=== PATIENT | female | born 1955 | race Caucasian/White ===

== ENCOUNTER → 2017-06-05 | Outpatient (CLI) | payer OTHER ==
[~2017-06-05] MED LIST: ATIVAN1 MG PO; ATIVAN2 MG PO; ECOTRIN325 MG PO; HYDROCHLOROTH12.5 M1 PO; HYDROCODONE BIT1 T11 PO; IBUPROFEN800 MG PO; INDOCIN SR75 MG PO; Lovenox40 MG/0.4 SC; MOTRIN 800 MG E4 TAB PO; Micro K10 MEQ PO; PERCOCET 325 MG1 TA4 PO; PERCOCET 325 MG1 TA8 PO; POTASSIUM20 MEQ PO; REQUIP1 MG PO; REQUIP2 MG PO; VICODIN 5/500 505 MG PO; XANAX0.5 MG PO; ZANAFLEX2 M1 PO
[2017-06-05 07:52] LABS: BASO # 0.1 10*3/uL (0.0-0.1); BASO % 1.2 % (0.0-1.0); EOS # 0.5 10*3/uL (0.0-0.4); EOS % 6.5 % (1.0-4.0); HEMATOCRIT 46.2 % (37.0-47.0); HEMOGLOBIN 15.8 g/dl (12.0-16.0); LYMPH # 1.5 10*3/uL (1.3-4.4); LYMPH % 18.4 % (27.0-41.0); MEAN CELL VOLUME 88.3 fl (81.0-99.0); MEAN CORPUSCULAR HGB 30.2 pg (27.0-31.0); MEAN CORPUSCULAR HGB CONC 34.2 g/dl (33.0-37.0); MEAN PLATELET VOLUME 9.8 fl (9.6-12.3); MONO # 0.6 10*3/uL (0.1-1.0); MONO % 7.5 % (3.0-9.0); NEUT # 5.5 10*3/uL (2.3-7.9); NEUT % 66.2 % (47.0-73.0); PLATELET COUNT AUTOMATED 346 10*3/uL (130-400); RED BLOOD COUNT 5.23 10*6/uL (4.10-5.10); RED CELL DISTRI WIDTH 14.6 % (0-14.5); WHITE BLOOD COUNT 8.4 10*3/uL (4.8-10.8)
[2017-06-05 08:16] LABS: ALBUMIN 3.7 gm/dl (3.1-4.5); ALKALINE PHOSPHATASE 94 U/L (45-117); BUN 12 mg/dl (7-24); CHLORIDE 103 mmol/L (98-107); CHOLESTEROL 188 mg/dL (<200); CREATININE 0.63 mg/dL (0.55-1.02); FREE T4 1.59 ng/dl (0.76-1.46); HDL CHOLESTEROL 46 mg/dl (40-60); LDL CHOLESTEROL 124 mg/dL (9-159); SGOT/AST 4 IU/L (3-35); SGPT/ALT 14 U/L (12-78); SODIUM 137 mmol/L (136-145); TRIGLYCERIDES 90 mg/dl (<150); VLDL CHOLESTEROL 18 mg/dL (6-40)
[2017-06-05 08:40] LABS: VITAMIN D, 25-HYDROXY 21.8 ng/mL (30-100)
== END | disposition home or self-care (01) ==
LOC: LAB 07:13
PROVIDERS: Internal Medicine
DX: Z13.1 Encounter for screening for diabetes mellitus (principal); Z13.21 Encounter for screening for nutritional disorder; Z13.220 Encounter for screening for lipoid disorders; Z00.00 Encounter for general adult medical examination without abnormal findings

== ENCOUNTER → 2017-06-06 | Outpatient (CLI) | payer OTHER | END | disposition home or self-care (01) | LOC: MAMMO 03:10 | DX: Z12.31 Encounter for screening mammogram for malignant neoplasm of breast (principal) ==

== ENCOUNTER → 2017-07-02 | Outpatient (CLI) | payer OTHER | END | disposition home or self-care (01) | LOC: LAB 09:15 → US 15:00 | DX: R91.1 Solitary pulmonary nodule (principal); E03.9 Hypothyroidism, unspecified; R59.0 Localized enlarged lymph nodes ==

== ENCOUNTER → 2017-07-18 | Outpatient (CLI) | payer OTHER | END | disposition home or self-care (01) | LOC: NM 01:25 | DX: E04.9 Nontoxic goiter, unspecified (principal) ==

== ENCOUNTER → 2017-07-23 | Outpatient (CLI) | payer OTHER ==
[2017-07-23 10:08] LABS: FREE T4 1.64 ng/dl (0.76-1.46)
[2017-07-23 10:13] LABS: THYROID STIM HORMONE (HS) 1.32 uIU/ml (0.358-4.75)
== END | disposition home or self-care (01) ==
LOC: LAB 08:51
PROVIDERS: Internal Medicine
DX: I10 Essential (primary) hypertension (principal); G89.4 Chronic pain syndrome; E04.9 Nontoxic goiter, unspecified; J18.9 Pneumonia, unspecified organism; J00 Acute nasopharyngitis [common cold]; F17.210 Nicotine dependence, cigarettes, uncomplicated; F41.1 Generalized anxiety disorder; J44.1 Chronic obstructive pulmonary disease with (acute) exacerbation; M15.0 Primary generalized (osteo)arthritis

== ENCOUNTER → 2017-09-11 | Outpatient (CLI) | payer OTHER ==
[2017-09-11 09:11] LABS: FREE T4 1.56 ng/dl (0.76-1.46)
[2017-09-11 09:16] LABS: THYROID STIM HORMONE (HS) 1.87 uIU/ml (0.358-4.75)
[2017-09-13 08:10] LABS: THYROTROPIN RECEPTOR AB 0.59 IU/L (0.00-1.75)
== END | disposition home or self-care (01) ==
LOC: LAB 08:19
PROVIDERS: Internal Medicine Endocrinology, Diabetes & Metabolism
DX: E04.2 Nontoxic multinodular goiter (principal); R94.6 Abnormal results of thyroid function studies

== ENCOUNTER → 2017-11-21 | Outpatient (CLI) | payer OTHER ==
[2017-11-21 10:31] LABS: CREATININE 0.67 mg/dL (0.55-1.02)
[2017-11-21 10:36] LABS: FREE T4 1.43 ng/dl (0.76-1.46)
== END | disposition home or self-care (01) ==
LOC: LAB 10:06 → CT 15:00
PROVIDERS: Internal Medicine Endocrinology, Diabetes & Metabolism
DX: R94.6 Abnormal results of thyroid function studies (principal); E23.7 Disorder of pituitary gland, unspecified; R04.2 Hemoptysis; E04.2 Nontoxic multinodular goiter

== ENCOUNTER → 2018-01-24 | Outpatient (CLI) | payer OTHER | END | disposition home or self-care (01) | LOC: RAD 08:00 | DX: M19.031 Primary osteoarthritis, right wrist (principal); Z87.891 Personal history of nicotine dependence ==

== ENCOUNTER → 2018-09-24 | Outpatient (CLI) | payer OTHER ==
[~2018-09-24] MED LIST changes: +IBU-200200 MG PO; +METOPROLOL SUCC25 M2 PO; -Micro K10 MEQ PO; +NEURONTIN300 MG PO; +POTASSIUM CHLO10 ME4 PO; +PROTONIX TR40 M1 PO; +TYLENOL EXTRA500 M2 PO
[2018-09-24 07:55] LABS: BASO # 0.1 10*3/uL (0.0-0.1); EOS # 0.4 10*3/uL (0.0-0.4); EOS % 3.9 % (1.0-4.0); HEMATOCRIT 45.2 % (37.0-47.0); HEMOGLOBIN 14.3 g/dl (12.0-16.0); LYMPH % 10.8 % (27.0-41.0); MEAN CELL VOLUME 85.3 fl (81.0-99.0); MEAN CORPUSCULAR HGB CONC 31.6 g/dl (33.0-37.0); MONO # 0.4 10*3/uL (0.1-1.0); MONO % 4.9 % (3.0-9.0); PLATELET COUNT AUTOMATED 372 10*3/uL (130-400); RED CELL DISTRI WIDTH 15.9 % (0-14.5); WHITE BLOOD COUNT 8.9 10*3/uL (4.8-10.8)
[2018-09-24 08:23] LABS: ALBUMIN 3.4 gm/dl (3.1-4.5); ALKALINE PHOSPHATASE 94 U/L (45-117); BUN 16 mg/dl (7-24); CHLORIDE 104 mmol/L (98-107); CHOLESTEROL 182 mg/dL (<200); CREATININE 0.81 mg/dL (0.55-1.02); FREE T4 1.42 ng/dl (0.76-1.46); HDL CHOLESTEROL 47 mg/dl (40-60); LDL CHOLESTEROL 115 mg/dL (9-159); POTASSIUM 3.2 mmol/L (3.5-5.1); SGOT/AST 8 IU/L (3-35); SGPT/ALT 11 U/L (12-78); SODIUM 140 mmol/L (136-145); TOTAL PROTEIN 8.1 gm/dL (6.4-8.2); TRIGLYCERIDES 99 mg/dl (<150); VLDL CHOLESTEROL 20 mg/dL (6-40)
[2018-09-24 08:33] LABS: VITAMIN D, 25-HYDROXY 22.6 ng/mL (30-100)
== END | disposition home or self-care (01) ==
LOC: MAMMO 09-17 14:30 → LAB 02:13 → MAMMO 14:30
PROVIDERS: Internal Medicine
DX: Z12.31 Encounter for screening mammogram for malignant neoplasm of breast (principal); Z13.1 Encounter for screening for diabetes mellitus; Z13.220 Encounter for screening for lipoid disorders; Z13.21 Encounter for screening for nutritional disorder; E55.9 Vitamin D deficiency, unspecified; R53.81 Other malaise

== ENCOUNTER 2019-01-23 07:06 | Inpatient (IN) | payer OTHER ==
[2019-01-23] VITALS (16 sets, daily range): BP systolic 113–155; BP diastolic 65–87
[~2019-01-23] VITALS: Ht 165.1 cm; Wt 49.9 kg
--- NOTE | ~2019-01-23 | EKG ---
[place], [place] ELECTROCARDIOGRAM REPORT NAME: MICHAEL SANTIAGO UNIT #: [id number] ROOM: [facility] DOCTOR: ORION DRAFT REPORT BIRTHDATE: [birth year] [facility] Test Date: 2019-01-23 Test Time: 07:27:26 Pat Name: MICHAEL SANTIAGO Department: Room: [facility] Gender: F Energy Efficiency Specialist: : 1955 Requested By: TYSHAWN JAMESON Order Number: [id number] Reading MD: Phylicia Santos Measurements Intervals [place] Rate: 100 P: 78 WI: 153 QRS: -25 QRSD: 98 T: 110 QT: 334 QTc: 431 Interpretive Statements Sinus tachycardia Borderline left axis deviation Low voltage, precordial leads Repol abnrm suggests ischemia, anterolateral Electronically Signed On 01-24-2019 8:31:29 PDT by Phylicia Santos CM:EKGRPT:ELECTROCARDIOGRAM REPORT [id number] TYSHAWN SEARS DRAFT REPORT TYSHAWN JAMESON M.D.
--- NOTE | ~2019-01-23 | PR ---
[place], [place] PROGRESS NOTE NAME: MICHAEL SANTIAGO UNIT #: [id number] ROOM: [facility] DOCTOR: SHAYY MELGAR MD BIRTHDATE: [birth year] DOS: 01/24/2019 SUBJECTIVE: The patient is feeling much better, has not vomited any blood since being admitted to the hospital. The patient is scheduled for an EGD evaluation for her upper GI bleed by Dr. Langley today. OBJECTIVE: VITAL SIGNS: Blood pressure 140/67, heart rate 90 beats per minute, breathing 16 times per minute, temperature 98.3 degrees Fahrenheit. GENERAL APPEARANCE: The patient is alert and oriented x 3, in no visible distress. HEENT AND NECK: Exam within normal limits. CARDIOVASCULAR SYSTEM: Heart rate is regular in rate and rhythm. S1 and S2 normally audible. LUNGS: Clear to auscultation. ABDOMEN: Soft, nontender. No obvious organomegaly. Bowel sounds are present. EXTREMITIES: Without significant cyanosis or edema. IMPRESSION: 1. The patient with severe acute upper gastrointestinal bleed, apparently secondary to taking ibuprofen 1000 mg 3 times a day. The patient's ibuprofen has been stopped and she is on IV Protonix infusion along with Sandostatin infusion and being followed by Dr. Langley and Dr. Edgar and is being taken for an EGD evaluation by Dr. Langley today. The patient's hemoglobin is being monitored and has improved after blood transfusion. No more signs of bleeding today. The patient is being closely monitored in the ICU. 2. Benign essential hypertension, treated and controlled. Blood pressure is being monitored. 3. Lumbar spinal stenosis, treated with gabapentin, which is being continued. 4. Osteoarthritis involving multiple joints with chronic pains being controlled with gabapentin. 5. Hypokalemia with potassium level of 2.9, which is being replaced with intravenous potassium 60 mEq today. [place], [place] PROGRESS NOTE NAME: MICHAEL SANTIAGO UNIT #: [id number] ROOM: [facility] DOCTOR: SHAYY MELGAR MD BIRTHDATE: [birth year] SHAYY MELGAR MD CM:PNTRANS [id number] SHAYY MELGAR MD 01/25/19 0041 interface
--- NOTE | ~2019-01-23 | PR ---
[place], [place] PROGRESS NOTE NAME: MICHAEL SANTIAGO UNIT #: [id number] ROOM: [facility] DOCTOR: CARYN ASHLEY MD BIRTHDATE: [birth year] DOS: SUBJECTIVE: The patient states that she is tired, does not have any new complaints. OBJECTIVE: VITAL SIGNS: Graphic trend shows a pressure 124/82, pulse of 93, respirations 18, temperature 98.6. LUNGS: Diminished breath sounds. Clear. HEART: Regular. ABDOMEN: Soft. EXTREMITIES: Without any edema. LABORATORY DATA: White cell count is 6.9, hemoglobin 6.7, hematocrit 21.0, platelets 265. BMP: Glucose 93, BUN 24, creatinine 0.78. Sodium 144, potassium 3.6, chloride 116, bicarbonate 17, calcium 7.1. MRSA of the nares was positive. ASSESSMENT AND PLAN: 1. The patient who presented with hematemesis with an acute penetrating gastric ulcer. Discussed with Dr. Langley. He feels that the patient would benefit from surgical evaluation and wants to send out the patient to Dr. Samuels's care, Dr. Langley to make the determination this morning. 2. Anemia with precipitous drop in hematocrit from gastrointestinal bleed. Two units of blood transfusion will be ordered this morning. Also, check an iron level and a ferritin level and will be started on IV iron infusion if needed. 3. Benign hypertension. Pressures now controlled. We will hold off on hydrochlorothiazide. 4. Chronic back pain, which she takes Motrin, quite higher doses of Motrin, and she is given Dilaudid for pain right now. CARYN ASHLEY MD CM:PNTRANS [id number] CARYN ASHLEY MD 01/25/19 1057 interface
--- NOTE | ~2019-01-23 | WRIGHTHP ---
[place], [place] PATIENT HISTORY AND PHYSICAL EXAM NAME: [facility]O [id number] UNIT #: [id number] ROOM: [facility] DOCTOR: SHAYY MELGAR MD BIRTHDATE: [birth year] DOS: 01/23/2019 HISTORY OF PRESENT ILLNESS: The patient is a 64-year-old female with a past medical history of: 1. Benign essential hypertension. 2. Generalized anxiety disorder. 3. Nicotine smoke dependence. 4. History of lumbar spinal stenosis and generalized arthritis. 5. History of right hip replacement. The patient presented to the Emergency Department with vomiting blood and blood clots and she had noticed black colored stools a couple of days earlier. The patient got somewhat dizzy this morning, which was followed by vomiting. No fainting episodes. No chest pain, no shortness of breath. REVIEW OF SYSTEMS: RESPIRATORY: No increasing shortness of breath. GASTROINTESTINAL: The patient noticing fresh blood in her vomitus this morning and black stools earlier. CARDIOVASCULAR: No chest pains or palpitations. ALLERGIES: Known allergies to SULFUR. FAMILY HISTORY: Noncontributory. SOCIAL HISTORY: Smokes cigarettes. Denies any alcohol or drug abuse. HOME MEDICATIONS: The patient takes gabapentin. Medications were tizanidine, ropinirole, potassium, ibuprofen, hydrochlorothiazide, and gabapentin. PHYSICAL EXAMINATION: GENERAL: Alert and oriented. VITAL SIGNS: Blood pressure 154/87, heart rate of 95 beats per minute, breathing 17 times a minute, temperature 99 degrees Fahrenheit. HEENT AND NECK: Extraocular movements are intact. Sclerae are anicteric. Oral mucosa is moist and clean. No obvious facial weakness. Neck is supple without any lymphadenopathy. No thyromegaly. No JVD. No carotid arterial bruits. LUNGS: Clear to auscultation. No wheezing. No rhonchi. CARDIOVASCULAR SYSTEM: Heart rate is regular in rate and rhythm. S1 and S2 normally audible. No significant murmur or any other abnormal cardiac sounds. ABDOMEN: Soft, nontender. No obvious organomegaly. Bowel sounds are present. No obvious herniation. EXTREMITIES: Without significant cyanosis or edema. Warm to touch. CENTRAL NERVOUS SYSTEM: Alert and oriented x 3. Cranial nerves II-XII are intact. Speech is normal. The patient is able to move all extremities. Normal muscle strength. Deep tendon reflexes are equal on both sides. Plantars were downgoing. LABORATORY DATA: Hemoglobin of 8.8 and will be repeated at noon. Potassium level of 2.6. [place], [place] PATIENT HISTORY AND PHYSICAL EXAM NAME: MICHAEL SANTIAGO UNIT #: [id number] ROOM: [facility] DOCTOR: TALIA SINCLAIR,SHAYY Rodriguez BIRTHDATE: [birth year] IMPRESSION AND PLAN: 1. Acute upper gastrointestinal bleed. Dr. Langley and Dr. Edgar consulted on stat basis. The patient is getting Sandostatin infusion as well as IV Protonix infusion and hemoglobin to be repeated in 2 hours. The patient has been ordered 2 units of packed cells on stat basis and being watched very closely in the ICU. The patient has no significant complaints at this time. 2. Benign essential hypertension. Blood pressure will be monitored and treated. 3. Lumbar spinal stenosis. The patient is on gabapentin, which is being continued. 4. Acute upper gastrointestinal bleed, probably from consuming ibuprofen 1000 mg [id number] 3 times a day for several months now according to the patient for arthritic pains. 5. Osteoarthritis involving multiple joints with chronic pains. The patient was taking ibuprofen at home and is as described above. SHAYY MELGAR MD CM:HISPHYS:PATIENT HISTORY AND PHYSICAL EXAMINATION [id number] SHAYY MELGAR MD 01/23/19 1047 interface
--- NOTE | ~2019-01-23 | CON ---
[place], [place] REPORT OF CONSULTATION NAME: MICHAEL SANTIAGO UNIT #: [id number] ROOM: [facility] DOCTOR: RENEE TREJO MD BIRTHDATE: [birth year] DOS: 01/24/2019 GASTROENDOSCOPIC REPORT HISTORY OF PRESENT ILLNESS: A 64-year-old patient who presented with chief complaint of GI bleed, black tarry stool with H and H of 8.8 and 27, microcytic indices, a couple of days of dark stool. INR 1.1 and basic studies no radiologic pathology in the chest. GFR greater than 60. Potassium 2.6 that had to be corrected. CBC essentially stayed same area. She has been taking about 3 g of nonsteroidal anti-inflammatory daily. We had to transfuse her to ensure she keeps adequate H and H and stabilized at 10 and 30; platelet function test was done. PAST MEDICAL HISTORY: She has a picture of blood clot that she had vomited. She has had degenerative joint disease, has a history of hypertension. PAST SURGICAL HISTORY: Hysterectomy and three hip injections. SOCIAL HISTORY: Alcohol consumer, nonsmoker. FAMILY HISTORY: Noncontributory. MEDICATIONS: At home, oxycodone, Lovenox, Indocin at least 75 mg daily, Ecotrin 325 mg p.o. b.i.d. and nonsteroidal anti-inflammatories in addition. REVIEW OF SYSTEMS: HEENT: Denies double vision, blurred vision. RESPIRATORY: Denies shortness of breath. CARDIOVASCULAR: Denies chest pain. DIGESTIVE SYSTEM: Hematemesis, black tarry stool. PHYSICAL EXAMINATION: VITAL SIGNS: Stable. HEENT: Within normal limits. NECK: Supple, no thyromegaly, no cervical lymphadenopathy. CHEST: Symmetric anatomy, equal expansion. No wheeze, no rhonchi. HEART: Normal sinus rhythm, no gallop, no murmur. ABDOMEN: Soft. No hepato-organomegaly. Bowel sounds present. No pulsatile mass. EXTREMITIES: No cyanosis, no pedal edema. NEUROLOGIC: Alert, oriented to time, place and person. IMPRESSION: Gastrointestinal bleed secondary to nonsteroidal anti-inflammatory, anticoagulants, aspirin products. PLAN AND DISCUSSION: We are going to proceed investigation with EGD, if negative, colonoscopy. [place], [place] REPORT OF CONSULTATION NAME: MICHAEL SANTIAGO UNIT #: [id number] ROOM: [facility] DOCTOR: NEIL SINCLAIR,RENEE BIRTHDATE: [birth year] RENEE TREJO MD CM:CONSTR:REPORT OF CONSULTATION 54 02/12/19 0909 interface
--- NOTE | ~2019-01-23 | DS ---
[place], [place] DISCHARGE SUMMARY NAME: MICHAEL SANTIAGO UNIT #: [id number] ROOM: [facility] DOCTOR: CARYN ASHLEY MD BIRTHDATE: [birth year] DOS: 01/25/2019 DIAGNOSES: 1. Acute upper gastrointestinal bleed. 2. Penetrating ulcer of the lesser curvature. 3. Precipitous drop in hematocrit. 4. Chronic low back pain with usage of high amounts of nonsteroidals. 5. Methicillin-resistant Staphylococcus aureus of the nares. 6. Restless legs. 7. Spinal stenosis of the lumbar spine with radiculopathy. 8. History of right hip replacement. 9. Benign hypertension. 10. Generalized anxiety disorder. MEDICATIONS: Currently on discharge, she is on Protonix and statin. Her old medications are Zanaflex 1 mg p.m., Requip 2 mg b.i.d., potassium 10 daily, gabapentin 300 mg daily, hydrochlorothiazide 12.5 mg daily which is stopped. She also was taking ibuprofen 200 mg 3 times a day. She was taking up to 1000 mg daily. HOSPITAL COURSE: This patient is 64 years old, very well known to us, who comes in after spitting up large amounts of blood. She was sent to the Emergency Room, was evaluated and was found to have upper GI bleed, was admitted, was placed on IV fluids. Dr. Langley was consulted. Hemoglobin was 8.8 in the ER, was given transfusion and the hemoglobin did come up. Hypokalemia was noted, supplementation was given. Dr. Langley took the patient for endoscopy. A large gastric ulcer with a large clot, penetrating in the lesser curvature was noted. Dr. Langley feels that the patient would benefit from a surgical evaluation. The patient is most likely going to [place] this morning under Dr. Samuels's care and waiting for Dr. Langley to make the final call. Her hemoglobin did drop again to 6.7. Another 2 units of blood transfusion have been ordered. She is kept n.p.o. The pain is managed with IV Dilaudid. The patient is hemodynamically stable. Blood pressures have been within normal limits and hypertensives are on hold. Hypokalemia has corrected with supplementation. [place], [place] DISCHARGE SUMMARY NAME: MICHAEL SANTIAGO UNIT #: [id number] ROOM: [facility] DOCTOR: CARYN ASHLEY MD BIRTHDATE: [birth year] CARYN ASHLEY MD CM:DISCHARG 0722 1014 CARYN ASHLEY MD 01/25/19 1014 interface
--- NOTE | ~2019-01-23 | O ---
[place], [place] OPERATIVE NOTE NAME: MICHAEL SANTIAGO UNIT #: [id number] ROOM: [facility] DOCTOR: NEIL SINCLAIR,RENEE BIRTHDATE: [birth year] DOS: 01/24/2019 ENDOSCOPY REPORT The patient has presented with GI bleed, undergoing investigation. PROCEDURE: Today's procedure part of investigation is panendoscopy plus epinephrine hemostasis injection therapy. PREMEDICATION: Propofol. SCOPE: Olympus forward-viewing gastroscope Q10 video. REPORT: After putting the patient in the left lateral position and application of lubricant to the scope, the scope was introduced. Thereafter, under direct visualization, advanced through the length of esophagus into gastric pouch. Moderate size hiatal hernia seen at the point of impression and contraction of the gastric pouch. On the side of the lesser curvature, a giant penetrating ulcer with massive fresh clot on the surface was identified. Periphery of the ulcer was injected with 2 mL of epinephrine 1:10,000 both flanks and to secure control of the bleed. The patient has a large volume of blood in the stomach, extubated, tolerated the procedure well. IMPRESSION: Giant penetrating lesser curvature ulceration, large hiatal hernia. PLAN AND DISCUSSION: This patient requires immediate surgical management. As soon as she wakes up, we will discuss options. RENEE TREJO MD CM:OPRECORD:OPERATIVE NOTE 1955 0622 RENEE TREJO MD 02/12/19 0910 interface
[~2019-01-23 07:06] MED LIST changes: -IBU-200200 MG PO; -METOPROLOL SUCC25 M2 PO; -NEURONTIN300 MG PO; -PROTONIX TR40 M1 PO; -TYLENOL EXTRA500 M2 PO
[2019-01-23 07:37] LABS: BASO # 0.1 10*3/uL (0.0-0.1); BASO % 0.8 % (0.0-1.0); EOS # 0.1 10*3/uL (0.0-0.4); EOS % 0.6 % (1.0-4.0); HEMATOCRIT 27.7 % (37.0-47.0); HEMOGLOBIN 8.8 g/dl (12.0-16.0); LYMPH # 1.3 10*3/uL (1.3-4.4); LYMPH % 14.7 % (27.0-41.0); MEAN CELL VOLUME 78.9 fl (81.0-99.0); MEAN CORPUSCULAR HGB 25.1 pg (27.0-31.0); MEAN CORPUSCULAR HGB CONC 31.8 g/dl (33.0-37.0); MEAN PLATELET VOLUME 9.6 fl (9.6-12.3); MONO # 0.6 10*3/uL (0.1-1.0); MONO % 6.4 % (3.0-9.0); NEUT % 77.1 % (47.0-73.0); PLATELET COUNT AUTOMATED 489 10*3/uL (130-400); RED BLOOD COUNT 3.51 10*6/uL (4.10-5.10); RED CELL DISTRI WIDTH 16.4 % (0-14.5)
[2019-01-23 07:45] LABS: ACT PARTIAL THROMBO TIME 21.9 SECONDS (20.0-32.1)
[2019-01-23 07:55] LABS: ALBUMIN 3.2 gm/dl (3.1-4.5); ALKALINE PHOSPHATASE 81 U/L (45-117); BUN 33 mg/dl (7-24); CHLORIDE 101 mmol/L (98-107); CREATININE 0.86 mg/dL (0.55-1.02); POTASSIUM 2.6 mmol/L (3.5-5.1); SGOT/AST 11 IU/L (3-35); SGPT/ALT 9 U/L (12-78); SODIUM 135 mmol/L (136-145); TOTAL PROTEIN 7.5 gm/dL (6.4-8.2)
[2019-01-23] MEDS ORDERED: IBU-200200 MG PO (09:23)
[2019-01-23] MEDS ORDERED: NEURONTIN300 MG PO (10:07)
[2019-01-23 10:45] LABS: BASO # 0.1 10*3/uL (0.0-0.1); BASO % 0.9 % (0.0-1.0); EOS # 0.1 10*3/uL (0.0-0.4); EOS % 0.8 % (1.0-4.0); HEMATOCRIT 26.3 % (37.0-47.0); HEMOGLOBIN 8.3 g/dl (12.0-16.0); LYMPH # 1.5 10*3/uL (1.3-4.4); LYMPH % 16.4 % (27.0-41.0); MEAN CELL VOLUME 79.2 fl (81.0-99.0); MEAN CORPUSCULAR HGB CONC 31.6 g/dl (33.0-37.0); MEAN PLATELET VOLUME 9.7 fl (9.6-12.3); MONO # 0.7 10*3/uL (0.1-1.0); NEUT # 6.8 10*3/uL (2.3-7.9); NEUT % 73.6 % (47.0-73.0); PLATELET COUNT AUTOMATED 453 10*3/uL (130-400); RED BLOOD COUNT 3.32 10*6/uL (4.10-5.10); RED CELL DISTRI WIDTH 16.3 % (0-14.5); WHITE BLOOD COUNT 9.2 10*3/uL (4.8-10.8)
[2019-01-23 16:06] LABS: HEMATOCRIT 31.2 % (37.0-47.0); HEMOGLOBIN 10.3 g/dl (12.0-16.0)
[2019-01-23 22:09] LABS: HEMATOCRIT 26.1 % (37.0-47.0); HEMOGLOBIN 8.6 g/dl (12.0-16.0)
[2019-01-24] VITALS (10 sets, daily range): BP systolic 109–160; BP diastolic 58–91
[2019-01-24 05:45] LABS: CHLORIDE 108 mmol/L (98-107); CREATININE 0.66 mg/dL (0.55-1.02); POTASSIUM 2.9 mmol/L (3.5-5.1); SODIUM 138 mmol/L (136-145)
[2019-01-24 06:16] LABS: BASO # 0.1 10*3/uL (0.0-0.1); BASO % 0.9 % (0.0-1.0); EOS # 0.2 10*3/uL (0.0-0.4); EOS % 3.5 % (1.0-4.0); HEMATOCRIT 30.9 % (37.0-47.0); LYMPH # 1.5 10*3/uL (1.3-4.4); LYMPH % 25.3 % (27.0-41.0); MEAN CELL VOLUME 80.5 fl (81.0-99.0); MEAN CORPUSCULAR HGB CONC 32.4 g/dl (33.0-37.0); MEAN PLATELET VOLUME 10.2 fl (9.6-12.3); MONO # 0.5 10*3/uL (0.1-1.0); MONO % 9.4 % (3.0-9.0); NEUT # 3.5 10*3/uL (2.3-7.9); NEUT % 60.4 % (47.0-73.0); PLATELET COUNT AUTOMATED 322 10*3/uL (130-400); RED BLOOD COUNT 3.84 10*6/uL (4.10-5.10); RED CELL DISTRI WIDTH 15.9 % (0-14.5); WHITE BLOOD COUNT 5.8 10*3/uL (4.8-10.8)
[2019-01-24 06:29] LABS: BUN 16 mg/dl (7-24)
[2019-01-25] VITALS (11 sets, daily range): BP systolic 113–140; BP diastolic 32–82
[2019-01-25 06:12] LABS: BASO % 0.3 % (0.0-1.0); EOS # 0.1 10*3/uL (0.0-0.4); EOS % 1.6 % (1.0-4.0); MEAN CORPUSCULAR HGB 26.7 pg (27.0-31.0); MEAN CORPUSCULAR HGB CONC 31.9 g/dl (33.0-37.0); MEAN PLATELET VOLUME 9.9 fl (9.6-12.3); MONO # 0.6 10*3/uL (0.1-1.0); MONO % 8.1 % (3.0-9.0); NEUT # 5.2 10*3/uL (2.3-7.9); NEUT % 74.7 % (47.0-73.0); PLATELET COUNT AUTOMATED 265 10*3/uL (130-400); RED BLOOD COUNT 2.51 10*6/uL (4.10-5.10); RED CELL DISTRI WIDTH 16.3 % (0-14.5); WHITE BLOOD COUNT 6.9 10*3/uL (4.8-10.8)
[2019-01-25 06:21] LABS: BUN 24 mg/dl (7-24); CHLORIDE 116 mmol/L (98-107); CREATININE 0.48 mg/dL (0.55-1.02); POTASSIUM 3.6 mmol/L (3.5-5.1); SODIUM 144 mmol/L (136-145)
[2019-01-25 06:59] LABS: HEMOGLOBIN 6.7 g/dl (12.0-16.0); MEAN CELL VOLUME 83.7 fl (81.0-99.0)
[2019-03-20] MEDS ORDERED: PROTONIX TR40 M1 PO (16:27)
[2019-03-20] MEDS ORDERED: TYLENOL EXTRA500 M2 PO (16:28)
[2019-03-20] MEDS ORDERED: METOPROLOL SUCC25 M2 PO (16:28)
== END 2019-01-25 14:50 | disposition short-term general hospital (02) | DRG 378 ==
LOC: ED 07:06 → ICCU 08:41 → EDHOLD 08:41 → ICCU 08:41
PROVIDERS: Emergency Medicine; Internal Medicine Gastroenterology; ADMIT Internal Medicine
PROC: 30233R1 Transfusion of Nonautologous Platelets into Peripheral Vein, Percutaneous Approach (ICD-10-PCS; principal; 2019-01-23)
PROC: 3E0G8GC Introduction of Other Therapeutic Substance into Upper GI, Via Natural or Artificial Opening Endoscopic (ICD-10-PCS; 2019-01-24)
PROC: 30233N1 Transfusion of Nonautologous Red Blood Cells into Peripheral Vein, Percutaneous Approach (ICD-10-PCS; 2019-01-25)
DX: K92.2 Gastrointestinal hemorrhage, unspecified (principal); Z68.1 Body mass index [BMI] 19.9 or less, adult; R71.0 Precipitous drop in hematocrit; I10 Essential (primary) hypertension; F41.1 Generalized anxiety disorder; K25.3 Acute gastric ulcer without hemorrhage or perforation; E87.6 Hypokalemia; G89.29 Other chronic pain; F17.210 Nicotine dependence, cigarettes, uncomplicated; T39.315A Adverse effect of propionic acid derivatives, initial encounter; G25.81 Restless legs syndrome; K44.9 Diaphragmatic hernia without obstruction or gangrene; M54.9 Dorsalgia, unspecified; M19.90 Unspecified osteoarthritis, unspecified site; Z96.641 Presence of right artificial hip joint; M48.061 Spinal stenosis, lumbar region without neurogenic claudication; Z88.2 Allergy status to sulfonamides; Z79.82 Long term (current) use of aspirin; Z79.899 Other long term (current) drug therapy; Z90.710 Acquired absence of both cervix and uterus; Z82.49 Family history of ischemic heart disease and other diseases of the circulatory system; Z80.9 Family history of malignant neoplasm, unspecified; Y92.89 Other specified places as the place of occurrence of the external cause

== ENCOUNTER → 2019-02-04 | Outpatient (CLI) | payer OTHER ==
[~2019-02-04] MED LIST changes: +CEFUROXIME AXE250 MG PO; +IBU-200200 MG PO; +Lopressor25 MG PO; +METOPROLOL SUCC25 M2 PO; +NEURONTIN300 MG PO; +PROTONIX TR40 M1 PO; +SYMB80 INH; +TYLENOL EXTRA500 M2 PO
[2019-02-04 13:31] LABS: BASO # 0.1 10*3/uL (0.0-0.1); BASO % 1.1 % (0.0-1.0); EOS # 0.3 10*3/uL (0.0-0.4); HEMATOCRIT 34.6 % (37.0-47.0); HEMOGLOBIN 10.7 g/dl (12.0-16.0); LYMPH # 1.9 10*3/uL (1.3-4.4); LYMPH % 17.3 % (27.0-41.0); MEAN CELL VOLUME 88.5 fl (81.0-99.0); MEAN CORPUSCULAR HGB 27.4 pg (27.0-31.0); MEAN CORPUSCULAR HGB CONC 30.9 g/dl (33.0-37.0); MEAN PLATELET VOLUME 10.7 fl (9.6-12.3); MONO # 1.2 10*3/uL (0.1-1.0); MONO % 10.8 % (3.0-9.0); NEUT # 7.3 10*3/uL (2.3-7.9); NEUT % 67.3 % (47.0-73.0); PLATELET COUNT AUTOMATED 642 10*3/uL (130-400); RED BLOOD COUNT 3.91 10*6/uL (4.10-5.10); RED CELL DISTRI WIDTH 17.2 % (0-14.5); WHITE BLOOD COUNT 10.8 10*3/uL (4.8-10.8)
== END | disposition home or self-care (01) ==
LOC: LAB 12:25
PROVIDERS: Internal Medicine
DX: D64.9 Anemia, unspecified (principal)

== ENCOUNTER → 2019-03-04 | Outpatient (CLI) | payer OTHER ==
[~2019-03-04] MED LIST changes: -CEFUROXIME AXE250 MG PO; -Lopressor25 MG PO; -SYMB80 INH
== END | disposition home or self-care (01) ==
LOC: RAD 08:55
DX: M51.36 Other intervertebral disc degeneration, lumbar region (principal); M85.88 Other specified disorders of bone density and structure, other site

== ENCOUNTER 2019-03-25 05:48 | Inpatient (IN) | payer OTHER ==
[~2019-03-25] VITALS: Ht 165.1 cm; Wt 59.6 kg
--- NOTE | ~2019-03-25 | EKG ---
[place], [place] ELECTROCARDIOGRAM REPORT NAME: MICHAEL SANTIAGO UNIT #: [id number] ROOM: 520 DOCTOR: ORION DRAFT REPORT BIRTHDATE: [birth year] [facility] Test Date: 2019-03-25 Test Time: 08:57:27 Pat Name: MICHAEL SANTIAGO Department: Room: 520 Gender: F Healthcare Project Manager: : 1955 Requested By: RENARD LOCKE Order Number: [id number] Reading MD: Douglas Cleaning MD Measurements Intervals [place] Rate: 72 P: 82 [place]: 157 QRS: -30 QRSD: 94 T: -27 QT: 430 QTc: 471 Interpretive Statements Sinus rhythm Inferior infarct, old Compared to ECG 01/23/2019 07:27:26 Myocardial infarct finding now present Sinus tachycardia no longer present Early repolarization no longer present Possible ischemia no longer present Electronically Signed On 03-27-2019 5:05:31 PDT by Douglas Cleaning MD CM:EKGRPT:ELECTROCARDIOGRAM REPORT [id number] RENARD CH DRAFT REPORT RENARD LOCKE DO
--- NOTE | ~2019-03-25 | EKG ---
[place], [place] ELECTROCARDIOGRAM REPORT NAME: MICHAEL SANTIAGO UNIT #: [id number] ROOM: 520 DOCTOR: ORION DRAFT REPORT BIRTHDATE: [birth year] [facility] Test Date: 2019-03-25 Test Time: 11:44:32 Pat Name: MICHAEL SANTIAGO Department: Room: 520 Gender: F Dean: 18 : 1955 Requested By: RENARD LOCKE Order Number: [id number] Reading MD: Douglas Cleaning MD Measurements Intervals [place] Rate: 69 P: 72 [place]: 153 QRS: -32 QRSD: 100 T: -26 QT: 387 QTc: 415 Interpretive Statements Sinus rhythm Ventricular premature complex LVH with secondary repolarization abnormality Compared to ECG 01/23/2019 07:27:26 Ventricular premature complex(es) now present Left ventricular hypertrophy now present Sinus tachycardia no longer present Possible ischemia no longer present Electronically Signed On 03-27-2019 5:05:51 PDT by Douglas Cleaning MD CM:EKGRPT:ELECTROCARDIOGRAM REPORT [id number] 0505 RENARD CH DRAFT REPORT RENARD LOCKE DO
--- NOTE | ~2019-03-25 | EKG ---
[place], [place] ELECTROCARDIOGRAM REPORT NAME: MICHAEL SANTIAGO UNIT #: [id number] ROOM: 520 DOCTOR: ORION DRAFT REPORT BIRTHDATE: [birth year] [facility] Test Date: 2019-03-25 Test Time: 05:47:30 Pat Name: MICHAEL SANTIAGO Department: Room: 520 Gender: F Game Agent: : 1955 Requested By: RENARD LOCKE Order Number: [id number] Reading MD: Douglas Cleaning MD Measurements Intervals [place] Rate: 85 P: 60 GA: 152 QRS: -31 QRSD: 100 T: 9 QT: 390 QTc: 464 Interpretive Statements Sinus rhythm Probable left atrial enlargement Left axis deviation Consider anterior infarct Compared to ECG 01/23/2019 07:27:26 Myocardial infarct finding now present Sinus tachycardia no longer present Early repolarization no longer present Possible ischemia no longer present Electronically Signed On 03-27-2019 5:05:10 PDT by Douglas Cleaning MD CM:EKGRPT:ELECTROCARDIOGRAM REPORT [id number] 0505 RENARD CH DRAFT REPORT RENARD LOCKE DO
--- NOTE | ~2019-03-25 | PR ---
[place], [place] PROGRESS NOTE NAME: MICHAEL SANTIAGO UNIT #: [id number] ROOM: 520 DOCTOR: CARYN ASHLEY MD BIRTHDATE: [birth year] DOS: SUBJECTIVE: The patient states that she feels good and is not having any complaints, does not have any shortness of breath, chest pains or palpitations. OBJECTIVE: GENERAL: She is awake and alert and oriented. VITAL SIGNS: Blood pressure is 102/50, pulse of 73, respirations 18, temperature 98.0. LUNGS: Clear. HEART: Regular. ABDOMEN: Obese, soft. EXTREMITIES: Without any edema. Chest x-ray shows atelectasis, hiatal hernia, COPD, mild pleural effusion. LABORATORY DATA: CBC this morning, WBC count is 6.1, hemoglobin 8.7, hematocrit 28.9. BMP: Glucose 115, BUN 13, creatinine 0.70, sodium 133, potassium 3.1. Three sets of troponins have come back negative. ASSESSMENT AND PLAN: 1. Acute systolic congestive heart failure. The patient was told that she only had an ejection fraction of 20%. Prior echo done in January, which she says is not correct as per the patient. I do not have an echocardiogram report from [place] to review the results. I did order one, which was canceled yesterday, so we will write to do another one this morning. The patient is encouraged to stay, but she is adamant that she wants to go home because she has to work tomorrow and has a ticket to fly on Sunday to [place]. 2. Chronic obstructive pulmonary disease with moderate cigarette smoker without any exacerbation, on breathing treatments here. 3. Benign hypertension, controlled. Readjust medications. The plan is to discharge to home today. 4. Recent gastric ulcer. She was supposed to have an endoscopy as an outpatient. We will try to do it today while she is here. [place], [place] PROGRESS NOTE NAME: MICHAEL SANTIAGO UNIT #: [id number] ROOM: 520 DOCTOR: CARYN ASHLEY MD BIRTHDATE: [birth year] CARYN ASHLEY MD CM:PNTRANS 0851 [id number] CARYN ASHLEY MD 03/27/19 0048 interface
--- NOTE | ~2019-03-25 | WRIGHTHP ---
[place], [place] PATIENT HISTORY AND PHYSICAL EXAM NAME: MICHAEL SANTIAGO UNIT #: [id number] ROOM: 520 DOCTOR: CARYN ASHLEY MD BIRTHDATE: [birth year] DOS: 03/25/2019 HISTORY OF PRESENT ILLNESS: This patient is 64 years old. The patient is seen in the Emergency Room. She walked into the hospital for her work. On her way, she became quite dizzy, lightheaded and almost collapsed. She called out for the customer service security officer who came and helped her up. She did not fall on the ground. She did not lose her consciousness, but was taken to the Emergency Room where she was evaluated. She denies having any chest pains or palpitations, but has had increasing shortness of breath for the last few days. Denies having any nausea, any emesis, any fever or chills. PAST MEDICAL HISTORY: Significant for: 1. Last hospitalization in 01/2019 with a massive GI bleed and precipitous drop in hematocrit with a penetrating ulcer. 2. Left ventricular dysfunction per Dr. Cleaning. 3. Chronic low back pain with high dose of nonsteroidal usage. 4. Methicillin-resistant Staphylococcus aureus of the nares. 5. Restless legs. 6. Spinal stenosis of lumbar spine with radiculopathy. 7. Primary osteoarthritis of multiple joints. 8. Benign hypertension. 9. Generalized anxiety disorder. MEDICATIONS: She is currently on are gabapentin 300 at bedtime, metoprolol 25 b.i.d., Protonix 40 b.i.d., potassium 10 b.i.d., Requip 0.2 mg b.i.d., tizanidine 2 mg at bedtime, Tylenol 500 q. 6. SOCIAL HISTORY: Smoker of about 1 pack of cigarettes a day. Denies using any alcohol. She lives at home. She works at the hospital. PHYSICAL EXAMINATION: GENERAL: She is awake and alert and oriented. VITAL SIGNS: Blood pressure is 144/70, pulse of 73, respirations 18, temperature 98.2. LUNGS: Diminished breath sounds. HEART: Regular. ABDOMEN: Obese, soft, nontender. EXTREMITIES: Without any edema. LABORATORY DATA: Three sets of troponins. Lactic acid was pretty high at 6.1 of unknown etiology. Urine was refluxed for culture. Troponin sets 0.044, 0.043 and [address] of the chest showed congestive heart failure. No evidence of PE. ASSESSMENT AND PLAN: 1. Acute systolic congestive heart failure, on IV diuretics. Placed the patient on IV diuretics, rule out myocardial infarction protocol ordered, a Cardiology consultation obtained. 2. Benign hypertension, controlled. 3. Chronic obstructive pulmonary disease with continued nicotine abuse, [place], [place] PATIENT HISTORY AND PHYSICAL EXAM NAME: MICHAEL SANTIAGO UNIT #: [id number] ROOM: [facility] DOCTOR: CARYN ASHLEY MD BIRTHDATE: [birth year] encouraged the patient to quit smoking. Also, the patient is ordered breathing treatments and oxygen supplementation as needed. 4. Lactic acidosis of unknown etiology, possibly from underlying infectious process like urinary tract infection. Urine again refluxed. CARYN ASHLEY MD CM:HISPHYS:PATIENT HISTORY AND PHYSICAL EXAMINATION 0 09 CARYN ASHLEY MD 03/26/19 0908 interface
--- NOTE | ~2019-03-25 | CON ---
[place], [place] REPORT OF CONSULTATION NAME: MICHAEL SANTIAGO UNIT #: [id number] ROOM: 520 DOCTOR: TERRENCE DAY MD BIRTHDATE: [birth year] DOS: 03/26/2019 I saw this patient on behalf of Dr. Cleaning. HISTORY OF PRESENT ILLNESS: This is a 64-year-old -[place] woman with a history of essential hypertension, restless leg syndrome, spinal stenosis with radiculopathy, anxiety disorder, chronic back pain. She has never had heart attack, heart failure, rhythm disorder of the heart, COPD, cancer or stroke. She smokes half to one pack of cigarettes per day, but no alcohol use. She works in the [employer] here and as she was walking into the hospital, she suddenly became lightheaded and dizzy. Her vision became dark as if she was going to pass out. She lowered herself to the floor and immediately linux security administrator came and helped her. She was sat in a chair and when she began to feel better, she did not pass out. There was no nausea, sweating, chest pain, heaviness in the chest. She had no headaches or any double vision. She has some ringing in the ears, which is chronic. She was taken to the Emergency Department where her systolic blood pressure was 121. She has had no PND, orthopnea, or swelling of the lower extremities. She has had some exertional shortness of breath for the last 4 days with modest activity, but this feeling was not accompanied by any chest pain, heaviness or palpitations. Now, she feels fairly well. Little anxious. HOME MEDICATIONS: Include metoprolol 25 mg b.i.d., potassium chloride 10 mEq b.i.d., Protonix 40 b.i.d., ropinirole 2 mg b.i.d., gabapentin 300 at bedtime, Ceftin 250 mg b.i.d. and Zanaflex 2 mg at bedtime. FAMILY HISTORY: Negative for sudden and premature coronary artery disease. PHYSICAL EXAMINATION: GENERAL: This reveals a patient who is alert, oriented. She is a little anxious. Her complexion is fine. There is no thyromegaly or finger clubbing. She is not cyanotic, not jaundiced. VITAL SIGNS: Pulse is 73 beats per minute, blood pressure 121/71. Lowest blood pressure was 102/50. NECK: JVP is low. Negative AJR. There is no carotid bruit. HEART: There is no cardiomegaly. Cardiac auscultation reveals normal heart sounds. There are no extra heart sounds or rubs. Pedal pulses are somewhat feeble, but palpable. EXTREMITIES: There is no edema in lower extremities. RESPIRATORY: She is not tachypneic. Breath sounds are mildly diminished with very few adventitious sounds in the lower zones. ABDOMEN: Bowel sounds are normal. There is no bruit. There is no organomegaly or pulsatile mass and abdomen supple and nontender. NEUROLOGIC: Seems to be normal. [place], [place] REPORT OF CONSULTATION NAME: MICHAEL SANTIAGO UNIT #: [id number] ROOM: [facility] [place] DOCTOR: TERRENCE DAY MD BIRTHDATE: [birth year] LABORATORY DATA: ECGs have shown normal sinus rhythm with moderate left axis deviation and a single PVC on first ECG and that may be due to lead misplacement. Troponin I level is 0.04, 0.0430 and 0.03, BUN is 13, creatinine 0.70, potassium 3.1 and was 4.0 yesterday. IMPRESSION: 1. This patient had presyncope, i.e., lightheadedness while standing and, graying of vision. I suspect this to be due to orthostatic hypotension. 2. She has some exertional shortness of breath of 4 days' duration. The underlying reason is not clear. She does not seem to have any infection, but I believe she has some degree of COPD. I doubt if this shortness of breath is due to myocardial ischemia. I gather an echocardiogram has been ordered, which Dr. Cleaning will read. 3. Hypertension. Her blood pressure is fairly decent now. My recommendation would be just to discontinue metoprolol altogether and just see what her blood pressure readings are like without antihypertensive treatment and orthostatic measurements should be done as well. I thank you on behalf of Dr. Cleaning for this consult. TERRENCE DAY MD CM:CONSTR:REPORT OF CONSULTATION 1031 03/27/19 0204 interface
[2019-03-25 05:55] VITALS: BP 121/71
[2019-03-25] MEDS ORDERED: SYMB80 INH (06:07)
[2019-03-25 06:19] LABS: ACT PARTIAL THROMBO TIME 25.1 SECONDS (20.0-32.1); HEMATOCRIT 35.6 % (37.0-47.0); HEMOGLOBIN 10.3 g/dl (12.0-16.0); MEAN CORPUSCULAR HGB 23.7 pg (27.0-31.0); MEAN CORPUSCULAR HGB CONC 28.9 g/dl (33.0-37.0); MEAN PLATELET VOLUME 11.3 fl (9.6-12.3); PLATELET COUNT AUTOMATED 409 10*3/uL (130-400); RED BLOOD COUNT 4.34 10*6/uL (4.10-5.10); RED CELL DISTRI WIDTH 16.3 % (0-14.5); WHITE BLOOD COUNT 11.7 10*3/uL (4.8-10.8)
[2019-03-25 06:20] LABS: ALBUMIN 3.2 gm/dl (3.1-4.5); ALKALINE PHOSPHATASE 120 U/L (45-117); BUN 13 mg/dl (7-24); CHLORIDE 100 mmol/L (98-107); CREATININE 0.85 mg/dL (0.55-1.02); SGOT/AST 16 IU/L (3-35); SGPT/ALT 17 U/L (12-78); SODIUM 132 mmol/L (136-145); TOTAL PROTEIN 7.7 gm/dL (6.4-8.2)
[2019-03-25 06:45] LABS: BASOPHILS 1 % (0-1); PLATELET SUFFICIENCY HIGH (NORMAL); TOTAL CELLS COUNTED 100 #CELLS
[2019-03-25 08:20] LABS: BILIRUBIN NEGATIVE (NEGATIVE); BLOOD 2+ (NEGATIVE); CLARITY CLOUDY (CLEAR); COLOR YELLOW (YELLOW); GLUCOSE NEGATIVE (NEGATIVE); KETONE NEGATIVE (NEGATIVE); LEUKO ESTERASE NEGATIVE (NEGATIVE); NITRITE NEGATIVE (NEGATIVE); PH 6.5 (5.0-9.0); SPECIFIC GRAVITY 1.025 (1.005-1.030)
[2019-03-25 08:30] LABS: MUCOUS TRACE; RBC 21-30 rbc/hpf (0-2)
[2019-03-25 08:39] VITALS: BP 144/70
[2019-03-25 09:30] VITALS: BP 160/85
--- NOTE | 2019-03-25 09:30 | NUR ---
PATIENT TAKEN TO 5TH FLOOR BY THIS NURSE BEDSIDE GIVEN TO NEWTON ROSSI. NO CHANGE IN PATIENT CONDITION.
--- NOTE | 2019-03-25 09:30 | NUR ---
A 64YO FEMALE, admitted to , under the services of CARYN Soto MD with a diagnosis of . Chief complaint is SHORTNESS OF BREATH AND EPISODE OF COLLAPSE THIS MORNING. Patient arrived via stretcher from ER. Monitor applied. Initial assessment completed. Vital signs taken and recorded. CARYN SOTO MD notified of admission to the unit. Orders received. See assessment for past medical history, medications and allergies. Patient and/or family oriented to unit. [facility] visitation policy reviewed. Clothing/patient valuable form completed. NEWTON SAINZ
[2019-03-25] MEDS ORDERED: Lopressor25 MG PO (10:12)
--- NOTE | 2019-03-25 10:28 | NUR ---
DR. BHAKTA NOTIFIED OF CONSULT. ORDERS OBTAINED FOR ECHOCARDIOGRAM AND OBTAIN HEART CATH REPORT FROM [facility].
[2019-03-25 12:00] VITALS: BP 156/78
--- NOTE | 2019-03-25 13:23 | NUR ---
PATIENT REFUSE TO HAVE ECHO. DUPLICATE ORDER.. PATIENT STATED SHE HAD ONE DONE JANUARY 2019 SIDELL AND DOES NOT NEED ANOTHER.
[2019-03-25 16:00] VITALS: BP 141/68
[2019-03-25 20:00] VITALS: BP 103/61
--- NOTE | 2019-03-25 20:15 | NUR ---
PT RESTING IN BED. RESP-EASY AND REGULAR. NO C/O AT THIS TIME. CALL LIGHT IN REACH.
--- NOTE | 2019-03-25 21:30 | NUR ---
TOLERATED ROUTINE MED WITH NO PROBLEM. NO C/O AT THIS TIME. CALL LIGHT IN REACH.
[2019-03-26] VITALS: BP 102/50
--- NOTE | 2019-03-26 00:15 | NUR ---
C/O BACK PAIN AND UNDER FRONT OF RIB AREA PAIN, RATES PAIN 5 ON PAIN SCALE 0-10. MEDICATED WITH TYLENOL TWO TAB PO PER PRN ORDER, SEE EMAR. CALL LIGHT IN REACH. SEE SHIFT ASSESSMENT.
--- NOTE | 2019-03-26 01:20 | NUR ---
RESTING IN BED WITH EYES CLOSED. RESP-EASY AND REGULAR. MEDICATION SEEMS TO BE EFFECTIVE. CALL LIGHT IN REACH.
--- NOTE | 2019-03-26 02:00 | NUR ---
24 HR chart check completed.
--- NOTE | 2019-03-26 04:00 | NUR ---
RESTING IN BED WITH HOB ELEVATED. RESP-EASY AND REGULAR. STATES MEDICATION HELPED. BEDS ARE VERY UNCOMFORTABLE PER PT. CALL LIGHT IN REACH.
--- NOTE | 2019-03-26 06:00 | NUR ---
RESTING IN BED. NO C/O AT THBIS TIME. CALL LIGHT IN REACH.
[2019-03-26 06:31] LABS: BUN 13 mg/dl (7-24); CHLORIDE 102 mmol/L (98-107); POTASSIUM 3.1 mmol/L (3.5-5.1); SODIUM 133 mmol/L (136-145)
[2019-03-26 06:40] LABS: BASO # 0.1 10*3/uL (0.0-0.1); BASO % 0.8 % (0.0-1.0); EOS # 0.2 10*3/uL (0.0-0.4); EOS % 3.4 % (1.0-4.0); HEMATOCRIT 28.9 % (37.0-47.0); HEMOGLOBIN 8.7 g/dl (12.0-16.0); LYMPH # 1.3 10*3/uL (1.3-4.4); LYMPH % 20.4 % (27.0-41.0); MEAN CORPUSCULAR HGB 23.4 pg (27.0-31.0); MEAN CORPUSCULAR HGB CONC 30.1 g/dl (33.0-37.0); MEAN PLATELET VOLUME 11.2 fl (9.6-12.3); MONO # 1.1 10*3/uL (0.1-1.0); MONO % 17.1 % (3.0-9.0); NEUT # 3.6 10*3/uL (2.3-7.9); NEUT % 58.1 % (47.0-73.0); PLATELET COUNT AUTOMATED 329 10*3/uL (130-400); RED BLOOD COUNT 3.72 10*6/uL (4.10-5.10); RED CELL DISTRI WIDTH 16.3 % (0-14.5); WHITE BLOOD COUNT 6.1 10*3/uL (4.8-10.8)
[2019-03-26 06:45] LABS: MEAN CELL VOLUME 77.7 fl (81.0-99.0)
[2019-03-26 08:00] VITALS: BP 140/74
[2019-03-26] MEDS ORDERED: CEFUROXIME AXE250 MG PO (08:43)
[2019-03-26 09:00] VITALS: BP 112/64
--- NOTE | 2019-03-26 10:02 | NUR ---
PER DR. ASHLEY PATIENT OK TO HAVE THE EGD THAT WAS SCHEDULED FOR TODAY WITH DR. TREJO IF HE STILL WANTS TO DO IT. DR. TREJO CONSULTED FOR THIS. SURGERY NOTIFIED AND WILL NOTIFY DR. TREJO OF THE CONSULT, PER SURGERY RN. PATIENT AGREEABLE TO THE ECHOCARDIOGRAM THAT WAS ORDERED YESTERDAY AND SHE HAD REFUSED IT D/T HAD ONE DONE THIS PAST JANUARY. PATIENT STATES REFUSING THE EGD TODAY, STATES TOO MUCH IN ONE DAY, PLANS TO GO HOME LATER TODAY. SURGERY NOTIFIED THAT SHE REFUSES THE EGD. WHEN ECHO COMPLETED, DR. ASHLEY AND DR. BHAKTA'S OFFICE TO RECEIVE FAX OF THE REPORT.
--- NOTE | 2019-03-26 11:08 | NUR ---
OBTAINED ORTHOSTATIC BP INSTRUCTED BY DR. DAY: BP AFTER LYING FLAT X 15 MINUTES 140/72, PULSE 92, IMMEDIATELY UPON STANDING BP 157/76, PULSE 94, AND 3 MINUTES LATER STILL STANDING BP 152/78, PULSE 89.
--- NOTE | 2019-03-26 12:39 | NUR ---
Discharge instructions reviewed with patient. Patient receptive and verbalizes understanding. Follow-up care arranged. Written instructions given to patient. NEWTON SAINZ
--- NOTE | 2019-03-26 13:20 | NUR ---
PATIENT DISCHARGED TO FRONT LOBBY BY WHEELCHAIR, ACCOMPANIED BY [facility], FOR TRANSPORT HOME BY PRIVATE VEHICLE.
== END 2019-03-26 13:20 | disposition home or self-care (01) | DRG 280 ==
LOC: ED 05:48 → EDHOLD 08:46 → 5E 08:46
PROVIDERS: Student in an Organized Health Care Education/Training Program; ADMIT Internal Medicine
DX: I21.4 Non-ST elevation (NSTEMI) myocardial infarction (principal); I50.21 Acute systolic (congestive) heart failure; N39.0 Urinary tract infection, site not specified; E87.2 Acidosis; I11.0 Hypertensive heart disease with heart failure; R55 Syncope and collapse; G89.29 Other chronic pain; M54.5 Low back pain; G25.81 Restless legs syndrome; M19.90 Unspecified osteoarthritis, unspecified site; F41.1 Generalized anxiety disorder; M48.061 Spinal stenosis, lumbar region without neurogenic claudication; F17.210 Nicotine dependence, cigarettes, uncomplicated; J44.9 Chronic obstructive pulmonary disease, unspecified; I95.9 Hypotension, unspecified; Z86.14 Personal history of Methicillin resistant Staphylococcus aureus infection; Z79.899 Other long term (current) drug therapy

== ENCOUNTER → 2019-04-17 | Outpatient (CLI) | payer OTHER ==
[~2019-04-17] MED LIST changes: +CARVEDILOL3.125 MG PO; +CEFUROXIME AXE250 MG PO; +CIPRO500 MG PO; +DALIRESP500 MC1 PO; +FUROSEMIDE20 M1 PO; +Ipratropium Brom3 ML INH; +Lopressor25 MG PO; +PROAIR HFA8.5 GM INH; +SYMB80 INH
== END | disposition home or self-care (01) ==
LOC: RAD 14:00
DX: J44.9 Chronic obstructive pulmonary disease, unspecified (principal); F17.200 Nicotine dependence, unspecified, uncomplicated

== ENCOUNTER → 2019-05-02 | Outpatient (CLI) | payer OTHER | END | disposition home or self-care (01) | LOC: US 14:27 | DX: I73.9 Peripheral vascular disease, unspecified (principal) ==

== ENCOUNTER 2019-05-12 13:23 | Inpatient (IN) | payer OTHER ==
[~2019-05-12] VITALS: Ht 165.1 cm; Wt 59.7 kg
[~2019-05-12 13:23] MED LIST changes: -CARVEDILOL3.125 MG PO; -CIPRO500 MG PO; -DALIRESP500 MC1 PO; -FUROSEMIDE20 M1 PO; -Ipratropium Brom3 ML INH; -PROAIR HFA8.5 GM INH
[2019-05-12 13:24] VITALS: BP 156/88
[2019-05-12 14:11] LABS: INTERNATIONAL NORM RATIO 1.2 (2.0-3.5)
[2019-05-12 14:16] LABS: ALKALINE PHOSPHATASE 87 U/L (45-117); BUN 15 mg/dl (7-24); CHLORIDE 102 mmol/L (98-107); SGOT/AST 15 IU/L (3-35); SGPT/ALT 24 U/L (12-78); SODIUM 131 mmol/L (136-145); TOTAL PROTEIN 6.6 gm/dL (6.4-8.2)
[2019-05-12 14:17] VITALS: BP 138/66
[2019-05-12 14:17] LABS: TROPONIN I 0.021 ng/ml (<0.045)
--- NOTE | 2019-05-12 14:31 | NUR ---
RESTING IN BED QUIETLY, EYES CLOSED. OFFERS NO COMPLAINTS.
[2019-05-12 14:40] LABS: BASO # 0.1 10*3/uL (0.0-0.1); BASO % 0.8 % (0.0-1.0); EOS # 0.1 10*3/uL (0.0-0.4); EOS % 1.2 % (1.0-4.0); HEMATOCRIT 34.6 % (37.0-47.0); HEMOGLOBIN 9.8 g/dl (12.0-16.0); LYMPH % 14.7 % (27.0-41.0); MEAN CELL VOLUME 72.5 fl (81.0-99.0); MEAN CORPUSCULAR HGB 20.5 pg (27.0-31.0); MEAN CORPUSCULAR HGB CONC 28.3 g/dl (33.0-37.0); MEAN PLATELET VOLUME 10.4 fl (9.6-12.3); MONO # 0.8 10*3/uL (0.1-1.0); MONO % 12.5 % (3.0-9.0); NEUT # 4.7 10*3/uL (2.3-7.9); NEUT % 70.3 % (47.0-73.0); PLATELET COUNT AUTOMATED 435 10*3/uL (130-400); RED BLOOD COUNT 4.77 10*6/uL (4.10-5.10); RED CELL DISTRI WIDTH 17.2 % (0-14.5); WHITE BLOOD COUNT 6.6 10*3/uL (4.8-10.8)
[2019-05-12 15:18] VITALS: BP 148/82
[2019-05-12 15:26] LABS: BILIRUBIN NEGATIVE (NEGATIVE); BLOOD 3+ (NEGATIVE); CLARITY CLEAR (CLEAR); COLOR YELLOW (YELLOW); GLUCOSE NEGATIVE (NEGATIVE); KETONE NEGATIVE (NEGATIVE); LEUKO ESTERASE NEGATIVE (NEGATIVE); NITRITE NEGATIVE (NEGATIVE); SPECIFIC GRAVITY 1.015 (1.005-1.030); UROBILINOGEN 0.2 E.U./dl (0.2-1.0)
[2019-05-12 15:38] LABS: BACTERIA TRACE; RBC 16-20 rbc/hpf (0-2); WBC 0-2 wbc/hpf (0-5)
--- NOTE | 2019-05-12 15:50 | NUR ---
A 64, admitted to 5E, under the services of CARYN Soto MD with a diagnosis of FAINTING-INCONTINENCE WEAKNESS. Chief complaint is WEAKNESS. Patient arrived via stretcher from ER. Monitor applied. Initial assessment completed. Vital signs taken and recorded. CARYN SOTO MD notified of admission to the unit. Orders received. See assessment for past medical history, medications and allergies. Patient and/or family oriented to unit. [facility] visitation policy reviewed. Clothing/patient valuable form completed. JACLYN MULLER
[2019-05-12 16:00] VITALS: BP 154/76
--- NOTE | 2019-05-12 16:30 | NUR ---
CALL PLACED TO DR. ASHLEY ORDERS RECEIVED, CONSULTS FOR ANGELIZ, CONTINUE HOME MEDICATIONS, OXYGEN, DUO NEBS
[2019-05-12] MEDS ORDERED: CARVEDILOL3.125 MG PO (16:57)
[2019-05-12] MEDS ORDERED: FUROSEMIDE20 M1 PO (16:58)
[2019-05-12] MEDS ORDERED: DALIRESP500 MC1 PO (16:59)
[2019-05-12] MEDS ORDERED: Ipratropium Brom3 ML INH (16:59)
[2019-05-12] MEDS ORDERED: PROAIR HFA8.5 GM INH (17:00)
--- NOTE | 2019-05-12 18:00 | NUR ---
CALL PLACED TO DR. QUINTANA TO ADVISE OF CONSULT.
[2019-05-12 20:00] VITALS: BP 122/82; BP 142/82
[2019-05-13] VITALS: BP 98/52
--- NOTE | 2019-05-13 02:34 | NUR ---
24 HR chart check completed.
--- NOTE | 2019-05-13 04:36 | NUR ---
Patient sleeping. Respirations relaxed and easy. Siderails up . [place] on. HISSOM,PIO
--- NOTE | 2019-05-13 05:12 | NUR ---
PATIENT COMPLAINS OF ACHING LEG PAIN 5/10. MEDICATED PER ORDER. WILL CONTINUE TO MONITOR FOR RELIEF. VOICES NO OTHER CONCERNS AT THIS TIME. RESTING IN BED. CALL LIGHT WITHIN REACH.
--- NOTE | 2019-05-13 06:25 | NUR ---
PAIN MEDICATION EFFECTIVE. PATIENT RESTING IN BED. CALL LIGHT WITHIN REACH
[2019-05-13 08:00] VITALS: BP 152/81
--- NOTE | 2019-05-13 10:00 | NUR ---
Wagon Drill Operator in to talk to patient. Patient states lives at home with her son. There are 3 steps in the home. Physician: Dr. Kaitlyn Velarde [facility] Home health services: none Patient's level of ADLs: MINIMAL ASSIST Patient has working utilities: yes DME: 4 pronged cane, O2 @ 2L nc @ HS, nebulizer, O2 supplier [employer] Follow-up physician's appointment after d/c: she prefers to make her own follow up appt after discharge Does patient want to access PORTAL?: no Discharge plan discussed with patient. She lives at home with her son. She is independent in her ADLs and ambulates with a 4 pronged cane. Discussed home health care services and she denies any home needs at this time. She works. When medically stable she will be discharged to home. Her son will provide transportation on discharge. CRISTÓBAL RAMOS
[2019-05-13 12:00] VITALS: BP 145/74
--- NOTE | 2019-05-13 13:35 | NUR ---
C/O SHAKINESS, DIZZINESS AND LOSS OF APPETITE SINCE STARTING NEW MEDICATION THIS MORNING PER PT. DR ASHLEY MADE AWARE. RECEIVED ORDER FOR NICOTINE PATCH.
--- NOTE | 2019-05-13 13:38 | NUR ---
PT REFUSED NICOTINE PATCH.
[2019-05-13 16:00] VITALS: BP 149/80
--- NOTE | 2019-05-13 16:35 | NUR ---
Nursing screen received and chart reviewed. If patient should have a decline in ADLs then please refer to Occupational Therapy. Thank you. Kay Greene OTR/L
[2019-05-13 20:00] VITALS: BP 147/81
[2019-05-14] VITALS: BP 115/53
--- NOTE | 2019-05-14 01:22 | NUR ---
24 HR chart check completed.
--- NOTE | 2019-05-14 07:08 | NUR ---
NOTIFIED PHARMACY THAT REQUIP IS NEEDED.
--- NOTE | 2019-05-14 08:30 | NUR ---
Rice Dryer Mechanic in to see patient. No new needs or request at this time. She is awaiting an ultrasound by Dr. Chakraborty to check the fluid in her lungs. When medically stable she will be discharged to home.
--- NOTE | 2019-05-14 09:00 | NUR ---
DR QUINTANA IN TO SEE PT. OK PER DISCHARGE FROM HIS STAND POINT.
[2019-05-14] MEDS ORDERED: CEFUROXIME AXE250 MG PO (09:12)
[2019-05-14] MEDS ORDERED: FUROSEMIDE20 M1 PO (09:12)
[2019-05-14] MEDS ORDERED: CIPRO500 MG PO (09:24)
--- NOTE | 2019-05-14 09:35 | NUR ---
Discharge instructions reviewed with patient/family. Patient receptive and verbalizes understanding. Follow-up care arranged. Written instructions given to patient/family. ALEXANDRU DONOVAN
--- NOTE | 2019-05-14 10:18 | NUR ---
PT DISCHARGED AT THIS TIME TO HOME.
--- NOTE | 2019-05-14 10:18 | NUR ---
Discharge instructions reviewed with patient/family. Patient receptive and verbalizes understanding. Follow-up care arranged. Written instructions given to patient/family. ALEXANDRU DONOVAN
== END 2019-05-14 10:18 | disposition home or self-care (01) | DRG 191 ==
LOC: ED 13:23 → 5E 15:17 → EDHOLD 15:17 → 5E 15:25
PROVIDERS: Emergency Medicine; ADMIT Internal Medicine
DX: J44.1 Chronic obstructive pulmonary disease with (acute) exacerbation (principal); J96.11 Chronic respiratory failure with hypoxia; N39.0 Urinary tract infection, site not specified; I50.30 Unspecified diastolic (congestive) heart failure; G25.81 Restless legs syndrome; G89.29 Other chronic pain; M54.5 Low back pain; Z96.641 Presence of right artificial hip joint; I95.2 Hypotension due to drugs; F17.210 Nicotine dependence, cigarettes, uncomplicated; F41.1 Generalized anxiety disorder; M48.061 Spinal stenosis, lumbar region without neurogenic claudication; M15.9 Polyosteoarthritis, unspecified; I11.0 Hypertensive heart disease with heart failure; T44.7X5A Adverse effect of beta-adrenoreceptor antagonists, initial encounter; Y92.89 Other specified places as the place of occurrence of the external cause; Z88.2 Allergy status to sulfonamides; Z90.710 Acquired absence of both cervix and uterus; Z82.49 Family history of ischemic heart disease and other diseases of the circulatory system; Z80.8 Family history of malignant neoplasm of other organs or systems; Z71.6 Tobacco abuse counseling

== ENCOUNTER → 2019-06-02 | Outpatient (CLI) | payer OTHER ==
[~2019-06-02] MED LIST changes: +CARVEDILOL3.125 MG PO; +CIPRO500 MG PO; +DALIRESP500 MC1 PO; +FUROSEMIDE20 M1 PO; +Ipratropium Brom3 ML INH; +PROAIR HFA8.5 GM INH
== END | disposition home or self-care (01) ==
LOC: CT 10:14
DX: I65.22 Occlusion and stenosis of left carotid artery (principal); I73.9 Peripheral vascular disease, unspecified; I50.9 Heart failure, unspecified

== ENCOUNTER → 2019-06-19 | Outpatient (CLI) | payer OTHER ==
[2019-06-19 08:03] LABS: BASO # 0.1 10*3/uL (0.0-0.1); BASO % 1.4 % (0.0-1.0); EOS # 0.1 10*3/uL (0.0-0.4); EOS % 1.9 % (1.0-4.0); HEMATOCRIT 33.7 % (37.0-47.0); HEMOGLOBIN 9.2 g/dl (12.0-16.0); LYMPH % 15.6 % (27.0-41.0); MEAN CELL VOLUME 73.3 fl (81.0-99.0); MEAN CORPUSCULAR HGB CONC 27.3 g/dl (33.0-37.0); MEAN PLATELET VOLUME 10.8 fl (9.6-12.3); MONO # 0.6 10*3/uL (0.1-1.0); NEUT # 4.5 10*3/uL (2.3-7.9); NEUT % 71.9 % (47.0-73.0); PLATELET COUNT AUTOMATED 333 10*3/uL (130-400); RED CELL DISTRI WIDTH 19.2 % (0-14.5); WHITE BLOOD COUNT 6.2 10*3/uL (4.8-10.8)
[2019-06-19 08:40] LABS: ALBUMIN 3.3 gm/dl (3.1-4.5); ALKALINE PHOSPHATASE 95 U/L (45-117); BUN 24 mg/dl (7-24); CHLORIDE 108 mmol/L (98-107); CREATININE 0.89 mg/dL (0.55-1.02); POTASSIUM 3.2 mmol/L (3.5-5.1); SGOT/AST 26 IU/L (3-35); SGPT/ALT 23 U/L (12-78); SODIUM 137 mmol/L (136-145); TOTAL PROTEIN 7.2 gm/dL (6.4-8.2)
== END | disposition home or self-care (01) ==
LOC: LAB 07:35
PROVIDERS: Internal Medicine
DX: R53.81 Other malaise (principal); R79.89 Other specified abnormal findings of blood chemistry

== ENCOUNTER → 2019-06-20 | Outpatient (CLI) | payer OTHER ==
[2019-06-20 15:48] LABS: IRON 14 ug/dL (50-170); TOTAL IRON BINDING CAPACITY 519 ug/dl (250-450)
== END | disposition home or self-care (01) ==
LOC: LAB 14:09
PROVIDERS: Internal Medicine
DX: R71.8 Other abnormality of red blood cells (principal)

== ENCOUNTER → 2019-07-17 | Outpatient (CLI) | payer OTHER | END | disposition home or self-care (01) | LOC: CP 07:03 | DX: R05 Cough (principal) ==

== ENCOUNTER → 2019-08-12 | Outpatient (CLI) | payer OTHER ==
[2019-08-12 09:00] LABS: BASO # 0.1 10*3/uL (0.0-0.1); BASO % 1.4 % (0.0-1.0); EOS # 0.2 10*3/uL (0.0-0.4); EOS % 3.5 % (1.0-4.0); HEMATOCRIT 46.3 % (37.0-47.0); HEMOGLOBIN 13.4 g/dl (12.0-16.0); LYMPH # 1.2 10*3/uL (1.3-4.4); LYMPH % 18.1 % (27.0-41.0); MEAN CELL VOLUME 87.2 fl (81.0-99.0); MEAN CORPUSCULAR HGB 25.2 pg (27.0-31.0); MEAN CORPUSCULAR HGB CONC 28.9 g/dl (33.0-37.0); MEAN PLATELET VOLUME 10.2 fl (9.6-12.3); MONO # 0.5 10*3/uL (0.1-1.0); MONO % 6.9 % (3.0-9.0); NEUT # 4.6 10*3/uL (2.3-7.9); NEUT % 69.9 % (47.0-73.0); PLATELET COUNT AUTOMATED 285 10*3/uL (130-400); RED BLOOD COUNT 5.31 10*6/uL (4.10-5.10); RED CELL DISTRI WIDTH 26.5 % (0-14.5); WHITE BLOOD COUNT 6.5 10*3/uL (4.8-10.8)
== END | disposition home or self-care (01) ==
LOC: LAB 08:20
PROVIDERS: Internal Medicine
DX: E61.1 Iron deficiency (principal)

== ENCOUNTER 2019-08-29 14:00 | Inpatient (IN) | payer OTHER ==
[~2019-08-29] VITALS: Ht 165.1 cm; Wt 62.7 kg
[2019-08-29 14:03] VITALS: BP 93/69
[2019-08-29 15:42] LABS: ACT PARTIAL THROMBO TIME 29.1 SECONDS (20.0-32.1); INTERNATIONAL NORM RATIO 1.4 (2.0-3.5)
[2019-08-29 15:44] LABS: BASO # 0.1 10*3/uL (0.0-0.1); BASO % 0.3 % (0.0-1.0); EOS % 0.2 % (1.0-4.0); HEMATOCRIT 44.9 % (37.0-47.0); HEMOGLOBIN 13.2 g/dl (12.0-16.0); LYMPH # 0.9 10*3/uL (1.3-4.4); LYMPH % 5.9 % (27.0-41.0); MEAN CELL VOLUME 88.6 fl (81.0-99.0); MEAN CORPUSCULAR HGB CONC 29.4 g/dl (33.0-37.0); MONO # 0.9 10*3/uL (0.1-1.0); MONO % 5.9 % (3.0-9.0); NEUT # 13.2 10*3/uL (2.3-7.9); NEUT % 87.3 % (47.0-73.0); NUCLEATED RED BLOOD CELL 0.3 % (0.0-0.0); PLATELET COUNT AUTOMATED 290 10*3/uL (130-400); RED BLOOD COUNT 5.07 10*6/uL (4.10-5.10); RED CELL DISTRI WIDTH 22.8 % (0-14.5); WHITE BLOOD COUNT 15.1 10*3/uL (4.8-10.8)
[2019-08-29 15:45] LABS: ALBUMIN 3.5 gm/dl (3.1-4.5); ALKALINE PHOSPHATASE 110 U/L (45-117); BUN 41 mg/dl (7-24); CHLORIDE 110 mmol/L (98-107); CREATININE 1.93 mg/dL (0.55-1.02); LIPASE 26 U/L (73-393); POTASSIUM 4.5 mmol/L (3.5-5.1); SGOT/AST 61 IU/L (3-35); SGPT/ALT 73 U/L (12-78); SODIUM 135 mmol/L (136-145); TOTAL PROTEIN 7.3 gm/dL (6.4-8.2)
[2019-08-29 15:46] LABS: TROPONIN I < 0.015 ng/ml (<0.045)
[2019-08-29 20:10] VITALS: BP 130/81
[2019-08-29] MEDS ORDERED: SINGULAIR10 M1 PO (20:43)
[2019-08-29] MEDS ORDERED: LEXAPRO5 M1 PO (20:44)
[2019-08-29] MEDS ORDERED: NORVASC2.5 MG PO (20:45)
[2019-08-29 21:57] LABS: BILIRUBIN 1+ (NEGATIVE); CLARITY CLEAR (CLEAR); COLOR YELLOW (YELLOW); GLUCOSE NEGATIVE (NEGATIVE); KETONE 1+ (NEGATIVE); SPECIFIC GRAVITY 1.015 (1.005-1.030)
[2019-08-29 21:58] LABS: BACTERIA 2+; BLOOD 2+ (NEGATIVE); EPITHELIAL CELLS TNTC; LEUKO ESTERASE 2+ (NEGATIVE); MUCOUS 1+; NITRITE NEGATIVE (NEGATIVE); UROBILINOGEN 0.2 E.U./dl (0.2-1.0); WBC 16-20 wbc/hpf (0-5)
[2019-08-30] VITALS: BP 107/65
[2019-08-30 08:00] VITALS: BP 104/54
[2019-08-30 12:00] VITALS: BP 110/50
[2019-08-30 16:00] VITALS: BP 115/48
[2019-08-30 20:00] VITALS: BP 123/69
[2019-08-31] VITALS: BP 129/71
[2019-08-31 08:00] VITALS: BP 116/62
[2019-08-31 09:10] LABS: BASO # 0.1 10*3/uL (0.0-0.1); BASO % 0.5 % (0.0-1.0); EOS # 0.1 10*3/uL (0.0-0.4); EOS % 0.9 % (1.0-4.0); HEMATOCRIT 40.7 % (37.0-47.0); HEMOGLOBIN 11.9 g/dl (12.0-16.0); LYMPH % 10.3 % (27.0-41.0); MEAN CELL VOLUME 89.1 fl (81.0-99.0); MEAN CORPUSCULAR HGB CONC 29.2 g/dl (33.0-37.0); MEAN PLATELET VOLUME 10.7 fl (9.6-12.3); MONO # 0.5 10*3/uL (0.1-1.0); MONO % 5.2 % (3.0-9.0); NEUT # 7.7 10*3/uL (2.3-7.9); NEUT % 82.8 % (47.0-73.0); NUCLEATED RED BLOOD CELL 0.2 % (0.0-0.0); PLATELET COUNT AUTOMATED 253 10*3/uL (130-400); RED BLOOD COUNT 4.57 10*6/uL (4.10-5.10); RED CELL DISTRI WIDTH 22.5 % (0-14.5); WHITE BLOOD COUNT 9.3 10*3/uL (4.8-10.8)
[2019-08-31 12:00] VITALS: BP 111/62
[2019-08-31 16:00] VITALS: BP 124/67
[2019-08-31 20:00] VITALS: BP 136/67
[2019-09-01] VITALS: BP 106/56
[2019-09-01 07:01] LABS: CREATININE 0.66 mg/dL (0.55-1.02)
[2019-09-01 08:00] VITALS: BP 136/75
[2019-09-01 12:00] VITALS: BP 141/83
[2019-09-01 18:00] VITALS: BP 145/86
[2019-09-01 20:00] VITALS: BP 150/82
[2019-09-02] VITALS: BP 117/64
[2019-09-02] MEDS ORDERED: Bactroban Oint22 GM NAS (10:15)
[2019-09-02] MEDS ORDERED: DOXYCYCLINE100 M3 PO (10:15)
[2019-09-02 12:11] LABS: RHEUMATOID ARTHRITIS FACTOR <10.0 IU/mL (0.0-13.9)
== END 2019-09-02 12:04 | disposition home or self-care (01) | DRG 603 ==
LOC: ED 14:00 → 4E 17:15 → EDHOLD 17:15 → 4E 19:42
PROVIDERS: Internal Medicine; Nurse Practitioner Family; ADMIT Internal Medicine
DX: L03.115 Cellulitis of right lower limb (principal); N17.9 Acute kidney failure, unspecified; F33.0 Major depressive disorder, recurrent, mild; L02.512 Cutaneous abscess of left hand; L02.511 Cutaneous abscess of right hand; G89.29 Other chronic pain; G25.81 Restless legs syndrome; M48.061 Spinal stenosis, lumbar region without neurogenic claudication; M54.16 Radiculopathy, lumbar region; Z96.641 Presence of right artificial hip joint; F17.210 Nicotine dependence, cigarettes, uncomplicated; B95.62 Methicillin resistant Staphylococcus aureus infection as the cause of diseases classified elsewhere; R21 Rash and other nonspecific skin eruption; I10 Essential (primary) hypertension; F41.1 Generalized anxiety disorder; J45.40 Moderate persistent asthma, uncomplicated; L08.9 Local infection of the skin and subcutaneous tissue, unspecified; M47.896 Other spondylosis, lumbar region; K12.0 Recurrent oral aphthae; J43.2 Centrilobular emphysema; K21.0 Gastro-esophageal reflux disease with esophagitis; Z88.2 Allergy status to sulfonamides; Z90.710 Acquired absence of both cervix and uterus; Z82.49 Family history of ischemic heart disease and other diseases of the circulatory system; Z80.8 Family history of malignant neoplasm of other organs or systems

== ENCOUNTER → 2019-09-15 | Outpatient (CLI) | payer OTHER ==
[~2019-09-15] MED LIST changes: +Bactroban Oint22 GM NAS; +CARAFATE1 GM PO; +DOXYCYCLINE100 M3 PO; +LASIX20 MG PO; +LEXAPRO5 M1 PO; +NORVASC2.5 MG PO; +SINGULAIR10 M1 PO
[2019-09-15 14:56] LABS: BASO % 0.7 % (0.0-1.0); EOS % 0.3 % (1.0-4.0); HEMATOCRIT 45.2 % (37.0-47.0); HEMOGLOBIN 13.2 g/dl (12.0-16.0); LYMPH # 0.9 10*3/uL (1.3-4.4); LYMPH % 14.5 % (27.0-41.0); MEAN CELL VOLUME 86.9 fl (81.0-99.0); MEAN CORPUSCULAR HGB 25.4 pg (27.0-31.0); MEAN CORPUSCULAR HGB CONC 29.2 g/dl (33.0-37.0); MEAN PLATELET VOLUME 10.8 fl (9.6-12.3); MONO # 0.8 10*3/uL (0.1-1.0); MONO % 13.8 % (3.0-9.0); NEUT # 4.2 10*3/uL (2.3-7.9); NEUT % 70.2 % (47.0-73.0); PLATELET COUNT AUTOMATED 375 10*3/uL (130-400); RED CELL DISTRI WIDTH 20.7 % (0-14.5)
[2019-09-15 15:50] LABS: BUN 21 mg/dl (7-24); CHLORIDE 110 mmol/L (98-107); CREATININE 0.96 mg/dL (0.55-1.02); POTASSIUM 3.4 mmol/L (3.5-5.1); SODIUM 144 mmol/L (136-145)
== END | disposition home or self-care (01) ==
LOC: US 13:00 → LAB 13:45
PROVIDERS: Internal Medicine
DX: M79.89 Other specified soft tissue disorders (principal)

== ENCOUNTER 2019-09-23 14:44 | Inpatient (IN) | payer OTHER ==
[~2019-09-23] VITALS: Ht 165.1 cm; Wt 45.9 kg
[2019-09-23 14:44] VITALS: BP 141/88
[~2019-09-23 14:44] MED LIST changes: -CARAFATE1 GM PO; -LASIX20 MG PO
[2019-09-23 15:43] LABS: BASO # 0.1 10*3/uL (0.0-0.1); EOS # 0.1 10*3/uL (0.0-0.4); HEMOGLOBIN 14.7 g/dl (12.0-16.0); LYMPH # 1.3 10*3/uL (1.3-4.4); LYMPH % 21.6 % (27.0-41.0); MEAN CELL VOLUME 87.6 fl (81.0-99.0); MEAN CORPUSCULAR HGB 25.3 pg (27.0-31.0); MEAN CORPUSCULAR HGB CONC 28.8 g/dl (33.0-37.0); MEAN PLATELET VOLUME 11.2 fl (9.6-12.3); MONO # 0.5 10*3/uL (0.1-1.0); MONO % 8.8 % (3.0-9.0); NEUT % 67.3 % (47.0-73.0); PLATELET COUNT AUTOMATED 309 10*3/uL (130-400); RED BLOOD COUNT 5.82 10*6/uL (4.10-5.10); RED CELL DISTRI WIDTH 20.3 % (0-14.5)
[2019-09-23 16:00] VITALS: BP 138/74
[2019-09-23 16:01] LABS: ALBUMIN 3.6 gm/dl (3.1-4.5); ALKALINE PHOSPHATASE 138 U/L (45-117); BUN 28 mg/dl (7-24); CHLORIDE 110 mmol/L (98-107); CREATININE 1.14 mg/dL (0.55-1.02); POTASSIUM 5.1 mmol/L (3.5-5.1); SGOT/AST 19 IU/L (3-35); SGPT/ALT 21 U/L (12-78); SODIUM 141 mmol/L (136-145); TOTAL PROTEIN 8.1 gm/dL (6.4-8.2)
[2019-09-23 16:03] LABS: ACT PARTIAL THROMBO TIME 27.9 SECONDS (20.0-32.1); INTERNATIONAL NORM RATIO 1.2 (2.0-3.5)
[2019-09-23 16:04] LABS: TROPONIN I < 0.015 ng/ml (<0.045)
[2019-09-23 18:00] VITALS: BP 135/89
[2019-09-23] MEDS ORDERED: CARAFATE1 GM PO (18:06)
[2019-09-23] MEDS ORDERED: LASIX20 MG PO (18:07)
--- NOTE | 2019-09-23 18:45 | NUR ---
A 64, admitted to , under the services of CARYN Soto MD with a diagnosis of PNEUMONIA, CHF. Chief complaint is SOB. Patient arrived via bed from ER. Monitor applied. Initial assessment completed. Vital signs taken and recorded. CARYN SOTO MD notified of admission to the unit. Orders received. See assessment for past medical history, medications and allergies. Patient and/or family oriented to unit. [facility] visitation policy reviewed. Clothing/patient valuable form completed. CARLOS BARKER
--- NOTE | 2019-09-23 19:07 | NUR ---
PT RESFUSING TO HAVE LACTIC ACID LAB DRAWN AT THIS TIME. EXPLAINED PURPOSE OF THIS TO PT. STILL REFUSING. WILL ATTEMPT AGAIN AT 2111 WITH TROPONIN DRAW.
--- NOTE | 2019-09-23 19:30 | NUR ---
PT RESTING IN BED. APPEARS VISIBLY ANXIOUS. RESPS EASY AND NON LABORED. VSS. OXYGEN INTACT. WHITE BOARD UPDATED. RELAXATION TECHNIQUES TAUGHT AND IMPLEMENTED WELL NURSING COMFORT MEASURES. WILL CONTINUE TO MONITOR. BED ALARM ON. CALL LIGHT WITHIN REACH.
[2019-09-23 20:00] VITALS: BP 122/89
--- NOTE | 2019-09-23 22:00 | NUR ---
PT C/O "ALL OVER" 12/13 PAIN. MEDICATED PER ORDER. WILL MONITOR FOR RELIEF. RESTING IN BED. APPEARS VERY ANXIOUS. RELAXATION TECHNIQUES EXPLAINED AND IMPLEMENTED. RESPS EASY AND NON LABORED. CALL LIGHT WITHIN REACH.
--- NOTE | 2019-09-23 23:32 | NUR ---
MEDICATION EFFECTIVE PER PT
--- NOTE | 2019-09-23 23:39 | NUR ---
PT CURRENTLY REFUSING TO HAVE LAB WORK DRAWN. EXPLAINED PURPOSE AND RATIONALE TO PT. STILL REFUSING. REAL ESTATE LEGAL SECRETARY WILL RE ATTEMPT
--- NOTE | 2019-09-24 03:31 | NUR ---
24 HR chart check completed.
--- NOTE | 2019-09-24 04:24 | NUR ---
Patient sleeping. Respirations relaxed and easy. Siderails up . [place] on. BED ALARM ON. CALL LIGHT WITHIN REACH HISSOM,PIO
[2019-09-24 06:23] LABS: HEMATOCRIT 46.9 % (37.0-47.0); HEMOGLOBIN 13.7 g/dl (12.0-16.0); MEAN CELL VOLUME 86.7 fl (81.0-99.0); MEAN CORPUSCULAR HGB 25.3 pg (27.0-31.0); MEAN CORPUSCULAR HGB CONC 29.2 g/dl (33.0-37.0); MEAN PLATELET VOLUME 11.1 fl (9.6-12.3); PLATELET COUNT AUTOMATED 241 10*3/uL (130-400); RED BLOOD COUNT 5.41 10*6/uL (4.10-5.10); RED CELL DISTRI WIDTH 19.9 % (0-14.5); WHITE BLOOD COUNT 4.1 10*3/uL (4.8-10.8)
[2019-09-24 06:36] LABS: CREATININE 1.19 mg/dL (0.55-1.02)
[2019-09-24 06:38] LABS: POTASSIUM 4.7 mmol/L (3.5-5.1)
--- NOTE | 2019-09-24 06:53 | NUR ---
MICHAEL SANTIAGO [id number] Please refer to the physician's history and physical for past medical history, comorbid conditions, and allergies. Diagnosis: CHF LEFT LOWER LOBE PNEUMONIA SOB Ramsey Score: 18,AT RISK WOUND DESCRIPTIONS: Wound Number: 1 Location of the wound: right knee Thickness: Full Size: 0.5cm x 0.5cm x <0.1cm Tunneling: none Undermining: none Sinus Tract: none Presence of Exudate: none Amount: None Color: Brown, yellow Odor: None Periwound Skin Appearance: Erythema Wound edges: approximated Pain (associated with wound): none at time of assessment How does patient state this happened? pt states this has been going on since end august Wound Number: 2 Location of the wound: left index finger Thickness: Full Size: 1.3cm x 1.2cm x <0.1cm Tunneling: none Undermining: none Sinus Tract: none Presence of Exudate: none Amount: None Color: Brown, yellow Odor: None Periwound Skin Appearance: Erythema Wound edges: approximated Pain (associated with wound): none at time of assessment How does patient state this happened? pt states this has been going on since end august Wound Number: 3 Location of the wound: right index finger Thickness: Full Size: 0.7cm x 1.1cm x <0.1cm Tunneling: none Undermining: none Sinus Tract: none Presence of Exudate: none Amount: None Color: Brown, yellow Odor: None Periwound Skin Appearance: Erythema Wound edges: approximated Pain (associated with wound): none at time of assessment How does patient state this happened? pt states this has been going on since end august Wound Number: 4 Location of the wound: posterior left leg Thickness: Full Size: 0.7cm x 0.4cm x <0.1cm Tunneling: none Undermining: none Sinus Tract: none Presence of Exudate: none Amount: None Color: Brown, yellow Odor: None Periwound Skin Appearance: Erythema Wound edges: approximated Pain (associated with wound): none at time of assessment How does patient state this happened? pt states this has been going on since end august Wound Number: 5 Location of the wound: posterior right leg Thickness: Full Size: 0.7cm x 0.5cm x <0.1cm Tunneling: none Undermining: none Sinus Tract: none Presence of Exudate: none Amount: None Color: Brown, yellow Odor: None Periwound Skin Appearance: Erythema Wound edges: approximated Pain (associated with wound): none at time of assessment How does patient state this happened? pt states this has been going on since end august Wound Number: 6 Location of the wound: right proximal forearm Thickness: Full Size: 0.3cm x 0.3cm x <0.1cm Tunneling: none Undermining: none Sinus Tract: none Presence of Exudate: none Amount: None Color: Brown, yellow Odor: None Periwound Skin Appearance: Erythema Wound edges: approximated Pain (associated with wound): none at time of assessment How does patient state this happened? pt states this has been going on since end august Wound Number: 7 Location of the wound: right medial forearm Thickness: Full Size: 0.4cm x 0.3cm x <0.1cm Tunneling: none Undermining: none Sinus Tract: none Presence of Exudate: none Amount: None Color: Brown, yellow Odor: None Periwound Skin Appearance: Erythema Wound edges: approximated Pain (associated with wound): none at time of assessment How does patient state this happened? pt states this has been going on since end august Wound Number: 8 Location of the wound: right distal forearm Thickness: Full Size: 2.0cm x 0.3cm x <0.1cm Tunneling: none Undermining: none Sinus Tract: none Presence of Exudate: none Amount: None Color: Brown, yellow Odor: None Periwound Skin Appearance: Erythema Wound edges: approximated Pain (associated with wound): none at time of assessment How does patient state this happened? pt states this has been going on since august Left arm has 2 intact scars noted at time of assessment. No open areas noted at time of assessment. No drainage at time of assessment. Surface the patient is resting on: Isoflex SKIN PREVENTION RECOMMENDATION: 1. Pressure redistribution support surface as appropriate 2. Elevate heels 3. Remove boots/TEDS every shift and reapply 4. Head of bed 30 degrees as tolerated 5. Assess nutrition and hydration 6. Manage moisture 7. Avoid the use of containment devices while in bed 8. Use absorptive products on surfaces limit layers of linens on bed 9. Turn and reposition every 1-2 hours in bed and every 1 hour in chair as tolerated 10. Weight shifts every 15 minutes while up in chair 11. Offloading with pillows or device to keep heels elevated off bed 12. Monitor skin at least every shift 13. Inspect under medical devices twice a day WOUND TREATMENT RECOMMENDATIONS: Full thickness guidelines: Cleanse right knee, left index finger, right index finger, posterior left leg, posterior right leg, right proximal forearm, right medial forearm, right distal forearm with nss and apply sureprep around the wound therahoney to wound bed and cover with dsd daily. Patient states she will continue to care for these areas when she returns home she states that she doesn't need to follow up in an outpatient setting at this time. Patient states that she follows with Dr. Ramos on an outpatient setting
[2019-09-24 07:00] LABS: TOTAL CELLS COUNTED 100 #CELLS
[2019-09-24 07:01] LABS: PLATELET SUFFICIENCY NORMAL (NORMAL); POLYCHROMASIA SLIGHT; TARGET CELLS FEW
[2019-09-24 08:00] VITALS: BP 126/82
--- NOTE | 2019-09-24 09:00 | NUR ---
Human Resource Analyst in to talk to patient. Patient states lives at home with her son. There are 3 steps in the home. Physician: Dr. Kaitlyn Velarde Pharmacy: [facility] Home health services: none Patient's level of ADLs: independent Patient has working utilities: yes DME: 4 pronged cane, O2 @ 2L nc @ HS, portable O2 tank, nebulizer, O2 supplier [facility] [place] Follow-up physician's appointment after d/c: she prefers to make her own follow up appt after discharge Does patient want to access PORTAL?: no Discharge plan discussed with patient. She lives at home with her son. She is independent in her ADLs and ambulation but has a 4 pronged cane if needed. Discussed home health care services and she denies any home needs at this time. She works. When medically stable she will be discharged to home. Her son will provide transportation on discharge. CRISTÓBAL RAMOS
[2019-09-24 12:00] VITALS: BP 150/74
[2019-09-24 14:55] LABS: ARTERIAL BLOOD GAS PH 7.426 (7.35-7.45)
[2019-09-24 16:00] VITALS: BP 139/76
[2019-09-24 20:00] VITALS: BP 139/82
--- NOTE | 2019-09-24 23:30 | NUR ---
Pt placed on BiPap 12/6 FiO2 35%. Alarms on and audible.
[2019-09-25] VITALS: BP 119/73
--- NOTE | 2019-09-25 01:40 | NUR ---
PATIENT REQUESTING BIPAP TO BE TAKEN OFF. PLACED BACK ON NASAL CANNULA. RESPIRATORY NOTIFIED
--- NOTE | 2019-09-25 04:00 | NUR ---
PATIENT SLEEPING, NO SIGNS OF DISTRESS. RESPIRATIONS EASY,NON LABORED. BED IN LOWEST POSITION, BED ALARM ON, WILL CONTINUE TO MONITOR
--- NOTE | 2019-09-25 10:05 | NUR ---
DR. BHAKTA PAGED REGARDING CONSULT.
--- NOTE | 2019-09-25 10:30 | NUR ---
Candle Cutter in to see patient. No new needs or request at this time. She denies any home needs. When medically stable she will be discharged to home.
[2019-09-25 12:00] VITALS: BP 134/78
--- NOTE | 2019-09-25 14:23 | NUR ---
Nutritional Support Services Note: Pt is on a regular, low salt diet consuming 100% of meals. Discolored (brown/yellow) wounds noted to knee, fingers, and forearm. No open areas. Staff to continue to encourage good PO intakes to support healing of areas. Will follow if needed. SILKE Simmons internet marketing analyst
[2019-09-25 16:00] VITALS: BP 138/68
[2019-09-25 20:00] VITALS: BP 168/82
--- NOTE | 2019-09-25 20:00 | NUR ---
PATIENT RESTING IN BED, RESPIRATIONS EASY,NON LABORED. 2L NC INTACT. VOICES NO COMPLAINTS. WILL CONTINUE TO MONITOR.
--- NOTE | 2019-09-25 23:00 | NUR ---
Pt does not wish to wear the BiPap tonight. She stated it leaked a lot last night and she wants a good night sleep. Pt remains on 2L NC at SpO2 94%.
--- NOTE | 2019-09-25 23:02 | NUR ---
PATIENT GIVEN TYLENOL PER REQUEST FOR GENERLIZED PAIN. WILL CONTINUE TO MONITOR.
[2019-09-26] VITALS: BP 112/66
--- NOTE | 2019-09-26 04:24 | NUR ---
PATIENT SLEEPING, NO SIGNS OF DISTRESS. RESPIRATIONS EASY, NON LABORED. NASAL CANNULA INTACT. NO SIGNS OF DISTRESS. BED IN LOWEST POSITION,CALL LIGHT WITHIN REACH. WILL CONTINUE TO MONTIOR.
[2019-09-26 06:24] LABS: EOS % 0.5 % (1.0-4.0); HEMATOCRIT 40.9 % (37.0-47.0); HEMOGLOBIN 12.2 g/dl (12.0-16.0); LYMPH # 0.9 10*3/uL (1.3-4.4); MEAN CELL VOLUME 85.7 fl (81.0-99.0); MEAN CORPUSCULAR HGB 25.6 pg (27.0-31.0); MEAN CORPUSCULAR HGB CONC 29.8 g/dl (33.0-37.0); MEAN PLATELET VOLUME 10.8 fl (9.6-12.3); MONO # 0.7 10*3/uL (0.1-1.0); MONO % 8.7 % (3.0-9.0); NEUT # 5.9 10*3/uL (2.3-7.9); NEUT % 78.7 % (47.0-73.0); PLATELET COUNT AUTOMATED 186 10*3/uL (130-400); RED BLOOD COUNT 4.77 10*6/uL (4.10-5.10); RED CELL DISTRI WIDTH 18.9 % (0-14.5); WHITE BLOOD COUNT 7.6 10*3/uL (4.8-10.8)
[2019-09-26 06:50] LABS: BUN 34 mg/dl (7-24); CHLORIDE 99 mmol/L (98-107); POTASSIUM 3.6 mmol/L (3.5-5.1); SODIUM 138 mmol/L (136-145)
[2019-09-26 08:00] VITALS: BP 120/70
--- NOTE | 2019-09-26 09:50 | NUR ---
BILATERAL THORACENTESIS PERFORMED AT BEDSIDE UNDER ASEPTIC TECHNIQUE. DR. QUINTANA AND DR. MCKEE PERFORMED PROCEDURE. TIME OUT COMPLETED AT 0926. INJECTION OF NUMBING AGANT RIGHT SIDE AT 0930. LEFT SIDE AT 0945. RIGHT SIDE 600ML TAKEN. LEFT SIDE 300 TAKEN. PT TOLERATED PROCEEDURE WELL. VITALS STABLE. SPECIMENS WALKED TO LAB. DR. QUINTANA TO FOLLOW UP WITH PATIENT.
[2019-09-26 11:11] LABS: BODY FLUID WBC 143 /uL
[2019-09-26 11:22] LABS: BODY FLUID WBC 50 /uL
[2019-09-26 11:58] LABS: BF LYMPHOCYTES 53 %; BF MACROPHAGES 16 %; BF NEUTROPHILS 31 %
[2019-09-26 12:00] VITALS: BP 128/71
[2019-09-26 12:08] LABS: BF LYMPHOCYTES 36 %; BF MACROPHAGES 46 %; BF MESOTHELIALS 6 %; BF NEUTROPHILS 12 %
--- NOTE | 2019-09-26 12:25 | NUR ---
PT RESTING IN BED EATING LUNCH.RESPS EASY ON 2LNC. PT STATES SHE FEELS MUCH BETTER SINCE THOROCENTESIS.STABLE AT THIS TIME. NO NEEDS AT THIS TIME. CALL LIGHT IN REACH.
[2019-09-26 16:00] VITALS: BP 130/76
--- NOTE | 2019-09-26 17:27 | NUR ---
SPOKE TO RN AT [facility] REGARDING SUNDAY AM TRANSFER FOR HEART CATH. FACE SHEET,HX AND HOME MED LIST FAXED PREVIOUSLY.
[2019-09-26 20:00] VITALS: BP 113/68
[2019-09-27] VITALS: BP 104/61
--- NOTE | 2019-09-27 04:00 | NUR ---
PATIENT SLEEPING, NO SIGNS OF DISTRESS. RESPIRATIONS EASY,NON LABORED. BUMEX AND DOBUTAMINE DRIP INFUSING. BED IN LOWEST POSITION, CALL LIGHT WITHIN REACH. WILL CONTINUE TO MONITOR.
[2019-09-27 06:57] LABS: BASO % 0.1 % (0.0-1.0); EOS # 0.2 10*3/uL (0.0-0.4); EOS % 1.9 % (1.0-4.0); HEMATOCRIT 44.5 % (37.0-47.0); HEMOGLOBIN 13.7 g/dl (12.0-16.0); LYMPH % 12.8 % (27.0-41.0); MEAN CORPUSCULAR HGB 25.8 pg (27.0-31.0); MEAN CORPUSCULAR HGB CONC 30.8 g/dl (33.0-37.0); MEAN PLATELET VOLUME 10.5 fl (9.6-12.3); MONO # 0.7 10*3/uL (0.1-1.0); MONO % 9.5 % (3.0-9.0); NEUT # 5.9 10*3/uL (2.3-7.9); NEUT % 75.3 % (47.0-73.0); PLATELET COUNT AUTOMATED 185 10*3/uL (130-400); RED CELL DISTRI WIDTH 18.2 % (0-14.5); WHITE BLOOD COUNT 7.8 10*3/uL (4.8-10.8)
[2019-09-27 07:28] LABS: ALBUMIN 3.6 gm/dl (3.1-4.5); ALKALINE PHOSPHATASE 133 U/L (45-117); BUN 32 mg/dl (7-24); CHLORIDE 83 mmol/L (98-107); CREATININE 0.94 mg/dL (0.55-1.02); POTASSIUM 3.1 mmol/L (3.5-5.1); SGOT/AST 43 IU/L (3-35); SGPT/ALT 50 U/L (12-78); SODIUM 133 mmol/L (136-145)
[2019-09-27 07:31] LABS: TOTAL PROTEIN 7.8 gm/dL (6.4-8.2)
--- NOTE | 2019-09-27 07:47 | NUR ---
NOTIFIED DR. MELGAR OF PATIENT LAB WORK THIS MORNING. SEE NEW ORDERS .
[2019-09-27 08:00] VITALS: BP 128/69
[2019-09-27 09:07] LABS: ABG BASE EXCESS 21.2 mmol/L (-2.0-2.0); ARTERIAL BLOOD GAS PH 7.54 (7.35-7.45)
--- NOTE | 2019-09-27 09:51 | NUR ---
DR. QUINTANA NOTIFIED OF PATIENTS ABG RESULTS. NO NEW ORDERS.
[2019-09-27 12:00] VITALS: BP 103/60
[2019-09-27 14:06] LABS: ACID FAST SPEC PROCESSING Direct Inoculation (.)
[2019-09-27 14:06] LABS: ACID FAST SPEC PROCESSING Direct Inoculation (.)
[2019-09-27 16:00] VITALS: BP 110/64
[2019-09-27 20:00] VITALS: BP 72/38
--- NOTE | 2019-09-27 21:12 | NUR ---
SPOKE WITH DR MELGAR REGARDING PT PRESSURE OF /38. STATES TO CALL CARDIOLOGY.
--- NOTE | 2019-09-27 21:18 | NUR ---
SPOKE WITH DR SEQUEIRA REGARDING PT BP OF 72/38. STATES TO GIVE PATIENT 250 BOLUS, DR AWARE PT WAS HERE WITH CHF. STATES TO DO A CONTINUOUS 60ML/HR AFTER BOLUS IS COMPLETE.
--- NOTE | 2019-09-27 21:27 | NUR ---
PT DENIES DIZZINESS BUT STATES THAT HER VISION IS A LITTLE BLURRY. WILL MONITOR LUNG SOUNDS DURING FLUID ADMINISTRATION.
--- NOTE | 2019-09-27 23:00 | NUR ---
IN TO RECHECK PATIENTS BLOOD PRESSURE AT THIS TIME. PATIENT CLUTCHING CHEST AND COMPLAINING OF SHARP STABBING CHEST PAIN. BLOOD PRESSURE MANUALLY READS 50/30'S. STAT EKG ORDERED. ATTEMPTED TO CALL DR MELGAR WITH NO ANSWER, WILL TRY TO RECALL.
--- NOTE | 2019-09-27 23:00 | NUR ---
IN TO RECHECK PATIENTS BLOOD PRESSURE, AUTOMATIC READING 50'S/30'S AT THIS TIME. PT COMPLAINING OF STABBING CHEST PAIN RATED, STAT EKG ORDERED PER POLICY.
--- NOTE | 2019-09-27 23:15 | NUR ---
SPOKE WITH DR MELGAR REGARDING PATIENTS BLOOD PRESSURE, AND COMPLAINTS OF CHEST PAIN. STATES TO TRANSFER PATIENT TO ICU AND TO HAVE ACCEPTING NURSE CALL FOR ORDERS.
--- NOTE | 2019-09-27 23:35 | NUR ---
RECEIVED PATIENT FROM , REPORT GIVEN BY FLO VALDIVIA. PATIENT VERY DROWSY, DENIES ANY CHEST PAIN, BUT DOES STATE SHE IS HAVING BACK PAIN. CONTACTED DR. MELGAR, STARTED LEVOPHED. HOLD ON ALL BP MEDS. CHECK WITH CARDIO TO VERIFY HEART CATH ON SUNDAY.
--- NOTE | 2019-09-27 23:51 | NUR ---
PATIENT TRANSFERRED TO ICU BED 5. REPORT GIVEN TO FLO WEAVER.
[2019-09-28] VITALS (50 sets, daily range): BP systolic 59–114; BP diastolic 32–66
--- NOTE | 2019-09-28 00:30 | NUR ---
MESSAGE LEFT TO THE VOICEMAIL OF FAREED SANTIAGO TO NOTIFY HIM THAT THE PATIENT WAS TRANFERRED TO THE ICU TO BE MONITORED MORE CLOSELY.
--- NOTE | 2019-09-28 05:31 | NUR ---
Patient awoke for morning meds, states she is feeling better, denies any dizzyness, or chest pain. Patient with ivf and levophed. Patient left with call light in reach.
[2019-09-28 06:21] LABS: BASO % 0.1 % (0.0-1.0); EOS # 0.2 10*3/uL (0.0-0.4); EOS % 2.1 % (1.0-4.0); HEMATOCRIT 48.4 % (37.0-47.0); HEMOGLOBIN 14.3 g/dl (12.0-16.0); LYMPH # 1.5 10*3/uL (1.3-4.4); LYMPH % 15.1 % (27.0-41.0); MEAN CELL VOLUME 85.1 fl (81.0-99.0); MEAN CORPUSCULAR HGB 25.1 pg (27.0-31.0); MEAN CORPUSCULAR HGB CONC 29.5 g/dl (33.0-37.0); MEAN PLATELET VOLUME 11.1 fl (9.6-12.3); MONO # 1.1 10*3/uL (0.1-1.0); MONO % 11.1 % (3.0-9.0); NEUT # 7.2 10*3/uL (2.3-7.9); NEUT % 71.3 % (47.0-73.0); RED BLOOD COUNT 5.69 10*6/uL (4.10-5.10); RED CELL DISTRI WIDTH 18.5 % (0-14.5); WHITE BLOOD COUNT 10.1 10*3/uL (4.8-10.8)
[2019-09-28 06:23] LABS: PLATELET COUNT AUTOMATED 255 10*3/uL (130-400)
[2019-09-28 06:28] LABS: BUN 35 mg/dl (7-24); CHLORIDE 92 mmol/L (98-107); CREATININE 0.96 mg/dL (0.55-1.02); POTASSIUM 3.6 mmol/L (3.5-5.1); SODIUM 134 mmol/L (136-145)
--- NOTE | 2019-09-28 10:30 | NUR ---
LEVOPHED STOPPED.. MAPS IN THE UPPER 60'S... FAMILY AT BEDSIDE
--- NOTE | 2019-09-28 11:36 | NUR ---
SON IS TAKING HER MONEY & JEWELRY ALONG WITH HER COAT HOME WITH HIM. SHE IS KEEPING MOST CLOTHES & HER CHECKBOOK W/ ID...
--- NOTE | 2019-09-28 13:32 | NUR ---
DR MELGAR ROUNDED/DISCHARGE ORDER GIVEN... PER DR QUINTANA SEND PATIENT TO [facility] TOMORROW FOR HEART CATH SCHEDULED
--- NOTE | 2019-09-28 20:15 | NUR ---
PT. RESTING IN BED. HEP LOCK IN LA AND RA ASYMPT. IV NS RESUMES ORDERED. LUNGS CLEAR BUT DIMINISHED BILAT, PULSE OX 93% ON RA. ABDOMEN SOFT ,NONDISTENDED AND NORMO. NO PERIPHERAL EDEMA NOTED. PT. REMINDED OF NPO STATUS AFTER MIDNIGHT FOR HEART CATHETERIZATION IN AM. CHRISTOPHER FISHER RN
--- NOTE | 2019-09-28 23:00 | NUR ---
Pt does not wear the BiPap.
[2019-09-29] VITALS: BP 93/42
[2019-09-29 04:00] VITALS: BP 123/67
--- NOTE | 2019-09-29 05:08 | NUR ---
ATTEMPTED TO REACH DR. BHAKTA VIA HOME THROUGH ANSWERING SERVICE PER DR. SEQUEIRA'S ORDER TO CALL AT 0500 AND INFORM OF TRANSFER FOR AM HEART CATH. ANSWERING SERVICE SENT OUT PAGE STATING AM HEART CATH. PT. PREPARED FOR TRANSFER PER DR. SEQUEIRA THIS AM. CHRISTOPHER FISHER RN
--- NOTE | 2019-09-29 05:29 | NUR ---
PT. LEFT IN CARE OF [facility] CREW, REPORT GIVEN TO CREW. ALL BELONGINGS SENT WITH PATIENT. VS STABLE. CHRISTOPHER FISHER RN
--- NOTE | 2019-09-29 05:30 | NUR ---
ANSWERING SERVICE CALLED BACK TO INFORM THIS NURSE THAT DR. BHAKTA RECEIVED MESSAGE AND IS AWARE OF PATIENTS TRANSFER THIS AM FOR HEART CATH. CHRISTOPHER FISEHR RN
--- NOTE | 2019-09-29 05:34 | NUR ---
[facility] CALLED TO GIVEN REPORT. ONLY [employer] SECURITY ANALYST IN CURRENTLY. NAME AND PHONE NUMBER LEFT FOR RN TO CALL BACK TO GET REPORT ON TRANSFER. CHRISTOPHER FISHER RN
== END 2019-09-29 05:29 | disposition other institution (70) | DRG 291 ==
LOC: ED 14:44 → EDHOLD 17:01 → 5E 17:01 → ICCU 17:01 → 5E 17:21 → ICCU 09-27 23:39
PROVIDERS: Emergency Medicine; Internal Medicine; Internal Medicine Critical Care Medicine; ADMIT Internal Medicine
PROC: 5A09357 Assistance with Respiratory Ventilation, Less than 24 Consecutive Hours, Continuous Positive Airway Pressure (ICD-10-PCS; principal; 2019-09-24)
PROC: 0W9B30Z Drainage of Left Pleural Cavity with Drainage Device, Percutaneous Approach (ICD-10-PCS; 2019-09-26)
PROC: 0W9930Z Drainage of Right Pleural Cavity with Drainage Device, Percutaneous Approach (ICD-10-PCS; 2019-09-26)
DX: I11.0 Hypertensive heart disease with heart failure (principal); J18.9 Pneumonia, unspecified organism; J96.21 Acute and chronic respiratory failure with hypoxia; J44.1 Chronic obstructive pulmonary disease with (acute) exacerbation; J91.8 Pleural effusion in other conditions classified elsewhere; F33.0 Major depressive disorder, recurrent, mild; J44.0 Chronic obstructive pulmonary disease with (acute) lower respiratory infection; E87.3 Alkalosis; L02.512 Cutaneous abscess of left hand; L02.511 Cutaneous abscess of right hand; I50.43 Acute on chronic combined systolic (congestive) and diastolic (congestive) heart failure; I25.10 Atherosclerotic heart disease of native coronary artery without angina pectoris; E86.1 Hypovolemia; K21.0 Gastro-esophageal reflux disease with esophagitis; M48.061 Spinal stenosis, lumbar region without neurogenic claudication; M54.16 Radiculopathy, lumbar region; G25.81 Restless legs syndrome; F41.1 Generalized anxiety disorder; F17.210 Nicotine dependence, cigarettes, uncomplicated; I34.0 Nonrheumatic mitral (valve) insufficiency; I25.5 Ischemic cardiomyopathy; M19.90 Unspecified osteoarthritis, unspecified site; Z96.641 Presence of right artificial hip joint; Z86.14 Personal history of Methicillin resistant Staphylococcus aureus infection; Z88.2 Allergy status to sulfonamides; Z79.899 Other long term (current) drug therapy; Z90.710 Acquired absence of both cervix and uterus; Z82.49 Family history of ischemic heart disease and other diseases of the circulatory system

== ENCOUNTER → 2019-11-17 | Outpatient (CLI) | payer OTHER ==
[~2019-11-17] MED LIST changes: +CARAFATE1 GM PO; +LASIX20 MG PO
== END | disposition home or self-care (01) ==
LOC: CARD 08:18
DX: I08.1 Rheumatic disorders of both mitral and tricuspid valves (principal); I25.5 Ischemic cardiomyopathy

== ENCOUNTER → 2020-01-13 | Outpatient (CLI) | payer OTHER ==
[2020-01-13 14:52] LABS: BASO # 0.1 10*3/uL (0.0-0.1); BASO % 0.9 % (0.0-1.0); EOS # 0.1 10*3/uL (0.0-0.4); EOS % 2.4 % (1.0-4.0); HEMATOCRIT 45.6 % (37.0-47.0); LYMPH # 1.1 10*3/uL (1.3-4.4); LYMPH % 20.5 % (27.0-41.0); MEAN CELL VOLUME 96.4 fl (81.0-99.0); MEAN CORPUSCULAR HGB 30.4 pg (27.0-31.0); MEAN CORPUSCULAR HGB CONC 31.6 g/dl (33.0-37.0); MEAN PLATELET VOLUME 9.7 fl (9.6-12.3); MONO # 0.6 10*3/uL (0.1-1.0); MONO % 11.5 % (3.0-9.0); NEUT # 3.5 10*3/uL (2.3-7.9); NEUT % 64.5 % (47.0-73.0); PLATELET COUNT AUTOMATED 243 10*3/uL (130-400); RED BLOOD COUNT 4.73 10*6/uL (4.10-5.10); RED CELL DISTRI WIDTH 13.8 % (0-14.5); WHITE BLOOD COUNT 5.4 10*3/uL (4.8-10.8)
[2020-01-13 15:14] LABS: BUN 24 mg/dl (7-24); CHLORIDE 107 mmol/L (98-107); CREATININE 0.93 mg/dL (0.55-1.02); POTASSIUM 3.7 mmol/L (3.5-5.1); SODIUM 137 mmol/L (136-145)
[2020-01-13 15:21] LABS: VITAMIN D, 25-HYDROXY 12.5 ng/mL (30-100)
== END | disposition home or self-care (01) ==
LOC: LAB 14:32
PROVIDERS: Internal Medicine; Internal Medicine Clinical Cardiac Electrophysiology
DX: I25.5 Ischemic cardiomyopathy (principal); E55.9 Vitamin D deficiency, unspecified; R63.5 Abnormal weight gain; D51.9 Vitamin B12 deficiency anemia, unspecified

== ENCOUNTER → 2020-06-15 | Outpatient (CLI) | payer OTHER, MEDICARE | END | disposition home or self-care (01) | LOC: MAMMO 05-27 14:30 | PROVIDERS: ATTEND Internal Medicine | DX: Z12.31 Encounter for screening mammogram for malignant neoplasm of breast (principal); N64.89 Other specified disorders of breast ==

== ENCOUNTER → 2020-08-17 | Outpatient (CLI) | payer OTHER, MEDICARE ==
[2020-08-17 14:58] LABS: BASO # 0.1 10*3/uL (0.0-0.1); EOS # 0.2 10*3/uL (0.0-0.4); EOS % 2.6 % (1.0-4.0); HEMATOCRIT 45.1 % (37.0-47.0); LYMPH # 1.5 10*3/uL (1.3-4.4); LYMPH % 23.3 % (27.0-41.0); MEAN CELL VOLUME 94.9 fl (81.0-99.0); MEAN CORPUSCULAR HGB 29.9 pg (27.0-31.0); MEAN CORPUSCULAR HGB CONC 31.5 g/dl (33.0-37.0); MEAN PLATELET VOLUME 9.9 fl (9.6-12.3); MONO # 0.7 10*3/uL (0.1-1.0); MONO % 10.7 % (3.0-9.0); NEUT # 3.9 10*3/uL (2.3-7.9); NEUT % 62.1 % (47.0-73.0); PLATELET COUNT AUTOMATED 264 10*3/uL (130-400); RED BLOOD COUNT 4.75 10*6/uL (4.10-5.10); RED CELL DISTRI WIDTH 14.2 % (0-14.5); WHITE BLOOD COUNT 6.3 10*3/uL (4.8-10.8)
[2020-08-17 15:24] LABS: ALBUMIN 3.8 gm/dl (3.1-4.5); ALKALINE PHOSPHATASE 160 U/L (45-117); BUN 25 mg/dl (7-24); CHLORIDE 108 mmol/L (98-107); CHOLESTEROL 141 mg/dL (<200); CREATININE 0.98 mg/dL (0.55-1.02); HDL CHOLESTEROL 45 mg/dl (40-60); LDL CHOLESTEROL 50 mg/dL (9-159); POTASSIUM 3.4 mmol/L (3.5-5.1); SGOT/AST 19 IU/L (3-35); SGPT/ALT 23 U/L (12-78); SODIUM 141 mmol/L (136-145); TOTAL PROTEIN 8.3 gm/dL (6.4-8.2); TRIGLYCERIDES 231 mg/dl (<150); VLDL CHOLESTEROL 46 mg/dL (6-40)
[2020-08-17 15:29] LABS: FREE T4 1.19 ng/dl (0.76-1.46)
[2020-08-17 15:46] LABS: VITAMIN D, 25-HYDROXY 19.6 ng/mL (30-100)
== END | disposition home or self-care (01) ==
LOC: LAB 00:19 → CARD 15:00
PROVIDERS: ATTEND Internal Medicine
DX: J44.9 Chronic obstructive pulmonary disease, unspecified (principal); I42.0 Dilated cardiomyopathy; R06.02 Shortness of breath; R60.0 Localized edema; D52.9 Folate deficiency anemia, unspecified; D51.9 Vitamin B12 deficiency anemia, unspecified; R74.8 Abnormal levels of other serum enzymes; R79.82 Elevated C-reactive protein (CRP); E55.9 Vitamin D deficiency, unspecified; R53.81 Other malaise

== ENCOUNTER → 2020-11-23 | Outpatient (CLI) | payer OTHER, MEDICARE ==
[2020-11-23 09:08] LABS: BUN 18 mg/dl (7-24); CHLORIDE 106 mmol/L (98-107); CREATININE 1.01 mg/dL (0.55-1.02); POTASSIUM 3.2 mmol/L (3.5-5.1); SODIUM 139 mmol/L (136-145)
== END | disposition home or self-care (01) ==
LOC: LAB 07:57
PROVIDERS: ATTEND Internal Medicine
DX: E87.6 Hypokalemia (principal)

== ENCOUNTER → 2021-06-24 | Outpatient (CLI) | payer OTHER, MEDICARE ==
[2021-06-24 09:29] LABS: BASO # 0.1 10*3/uL (0.0-0.1); BASO % 0.9 % (0.0-1.0); EOS # 0.2 10*3/uL (0.0-0.4); EOS % 3.3 % (1.0-4.0); HEMATOCRIT 42.9 % (37.0-47.0); LYMPH # 1.5 10*3/uL (1.3-4.4); LYMPH % 27.3 % (27.0-41.0); MEAN CELL VOLUME 97.5 fl (81.0-99.0); MEAN CORPUSCULAR HGB 31.1 pg (27.0-31.0); MEAN CORPUSCULAR HGB CONC 31.9 g/dl (33.0-37.0); MEAN PLATELET VOLUME 9.4 fl (9.6-12.3); MONO # 0.6 10*3/uL (0.1-1.0); MONO % 11.3 % (3.0-9.0); NEUT # 3.1 10*3/uL (2.3-7.9); PLATELET COUNT AUTOMATED 285 10*3/uL (130-400); RED CELL DISTRI WIDTH 13.8 % (0-14.5); WHITE BLOOD COUNT 5.4 10*3/uL (4.8-10.8)
[2021-06-24 09:50] LABS: ALBUMIN 3.8 gm/dl (3.1-4.5); ALKALINE PHOSPHATASE 118 U/L (45-117); BUN 18 mg/dl (7-24); CHLORIDE 107 mmol/L (98-107); CHOLESTEROL 152 mg/dL (<200); CREATININE 0.89 mg/dL (0.55-1.02); LDL CHOLESTEROL 73 mg/dL (9-159); POTASSIUM 3.8 mmol/L (3.5-5.1); SGOT/AST 12 IU/L (3-35); SGPT/ALT 18 U/L (12-78); SODIUM 140 mmol/L (136-145); TOTAL PROTEIN 8.5 gm/dL (6.4-8.2); TRIGLYCERIDES 99 mg/dl (<150)
[2021-06-24 11:10] LABS: VITAMIN D, 25-HYDROXY 79.7 ng/mL (30-100)
== END | disposition home or self-care (01) ==
LOC: LAB 09:11
PROVIDERS: ATTEND Internal Medicine
DX: Z13.1 Encounter for screening for diabetes mellitus (principal); E55.9 Vitamin D deficiency, unspecified; R53.81 Other malaise; R79.89 Other specified abnormal findings of blood chemistry; D51.9 Vitamin B12 deficiency anemia, unspecified; E03.9 Hypothyroidism, unspecified; D52.9 Folate deficiency anemia, unspecified; Z13.0 Encounter for screening for diseases of the blood and blood-forming organs and certain disorders involving the immune mechanism; Z13.21 Encounter for screening for nutritional disorder; Z13.220 Encounter for screening for lipoid disorders; Z13.228 Encounter for screening for other metabolic disorders; Z13.6 Encounter for screening for cardiovascular disorders; Z13.89 Encounter for screening for other disorder; I10 Essential (primary) hypertension; I25.10 Atherosclerotic heart disease of native coronary artery without angina pectoris; I42.0 Dilated cardiomyopathy

== ENCOUNTER → 2022-02-22 | Outpatient (CLI) | payer OTHER, MEDICARE | END | disposition home or self-care (01) | LOC: RAD 14:00 | PROVIDERS: ATTEND Internal Medicine | DX: S32.019A Unspecified fracture of first lumbar vertebra, initial encounter for closed fracture (principal); S32.029A Unspecified fracture of second lumbar vertebra, initial encounter for closed fracture; M41.85 Other forms of scoliosis, thoracolumbar region; M25.851 Other specified joint disorders, right hip; M85.851 Other specified disorders of bone density and structure, right thigh; M85.88 Other specified disorders of bone density and structure, other site; X58.XXXA Exposure to other specified factors, initial encounter; Y93.89 Activity, other specified; Y92.89 Other specified places as the place of occurrence of the external cause; Y99.8 Other external cause status ==

== ENCOUNTER → 2022-06-12 | Outpatient (CLI) | payer OTHER, MEDICARE | END | disposition home or self-care (01) | LOC: CT 03:49 | PROVIDERS: ATTEND Internal Medicine | DX: M41.86 Other forms of scoliosis, lumbar region (principal); M51.27 Other intervertebral disc displacement, lumbosacral region; K44.9 Diaphragmatic hernia without obstruction or gangrene; M48.061 Spinal stenosis, lumbar region without neurogenic claudication; K86.9 Disease of pancreas, unspecified; M25.78 Osteophyte, vertebrae; M43.27 Fusion of spine, lumbosacral region ==

== ENCOUNTER → 2022-06-20 | Outpatient (CLI) | payer OTHER, MEDICARE | END | disposition home or self-care (01) | LOC: MAMMO 07:54 | PROVIDERS: ATTEND Internal Medicine | DX: Z12.31 Encounter for screening mammogram for malignant neoplasm of breast (principal) ==

== ENCOUNTER → 2022-07-11 | Outpatient (CLI) | payer OTHER, MEDICARE | END | disposition home or self-care (01) | LOC: MAMMO 02:01 | PROVIDERS: ATTEND Internal Medicine | DX: R92.8 Other abnormal and inconclusive findings on diagnostic imaging of breast (principal) ==

== ENCOUNTER → 2022-09-19 | Outpatient (CLI) | payer OTHER, MEDICARE | END | disposition home or self-care (01) | LOC: CARD 01:40 | PROVIDERS: ATTEND Internal Medicine | DX: R06.02 Shortness of breath (principal); I25.10 Atherosclerotic heart disease of native coronary artery without angina pectoris ==

== ENCOUNTER → 2022-10-04 | Day surgery (SDC) | payer OTHER, MEDICARE ==
[~2022-10-04] VITALS: Ht 165.1 cm; Wt 54.4 kg
[~2022-10-04] MED LIST changes: +COREG3.125 MG PO; +LIPITOR40 MG PO; +PLAVIX75 M1 PO
[2022-10-04 08:55] VITALS: BP 114/60
[2022-10-04 10:33] VITALS: BP 106/70
[2022-10-04 10:47] VITALS: BP 125/58
[2022-10-04 11:00] VITALS: BP 128/59
== END | disposition home or self-care (01) ==
LOC: SDC 09-29 11:00
PROVIDERS: ATTEND Ophthalmology
DX: H25.812 Combined forms of age-related cataract, left eye (principal); I10 Essential (primary) hypertension; F41.9 Anxiety disorder, unspecified; K21.9 Gastro-esophageal reflux disease without esophagitis; Z96.641 Presence of right artificial hip joint; Z87.891 Personal history of nicotine dependence; E78.00 Pure hypercholesterolemia, unspecified; Z95.0 Presence of cardiac pacemaker; Z79.899 Other long term (current) drug therapy

== ENCOUNTER → 2022-11-21 | Outpatient (CLI) | payer OTHER, MEDICARE ==
[2022-11-21 07:28] LABS: BASO # 0.1 10*3/uL (0.0-0.1); BASO % 0.8 % (0.0-1.0); EOS # 0.1 10*3/uL (0.0-0.4); EOS % 1.7 % (1.0-4.0); HEMATOCRIT 45.6 % (37.0-47.0); LYMPH # 1.5 10*3/uL (1.3-4.4); LYMPH % 20.4 % (27.0-41.0); MEAN CELL VOLUME 99.1 fl (81.0-99.0); MEAN CORPUSCULAR HGB 31.1 pg (27.0-31.0); MEAN CORPUSCULAR HGB CONC 31.4 g/dl (33.0-37.0); MEAN PLATELET VOLUME 9.5 fl (9.6-12.3); MONO # 0.6 10*3/uL (0.1-1.0); NEUT # 4.8 10*3/uL (2.3-7.9); PLATELET COUNT AUTOMATED 279 10*3/uL (130-400); RED CELL DISTRI WIDTH 13.2 % (0-14.5); WHITE BLOOD COUNT 7.1 10*3/uL (4.8-10.8)
[2022-11-21 08:19] LABS: ALKALINE PHOSPHATASE 105 U/L (46-116); BUN 18 mg/dl (9-23); CHLORIDE 105 mmol/L (98-107); CHOLESTEROL 155 mg/dL (<200); FREE T4 1.45 ng/dl (0.89-1.76); LDL CHOLESTEROL 76 mg/dL (9-159); SGPT/ALT 9 U/L (10-49); THYROID STIM HORMONE (HS) 2.373 uIU/ml (0.550-4.780); TOTAL PROTEIN 8.1 gm/dL (6.0-8.0); TRIGLYCERIDES 104 mg/dl (<150)
[2022-11-21 09:04] LABS: VITAMIN D, 25-HYDROXY 32.9 ng/mL (30-100)
== END | disposition home or self-care (01) ==
LOC: LAB 00:54
PROVIDERS: ATTEND Internal Medicine
DX: Z13.6 Encounter for screening for cardiovascular disorders (principal); Z13.1 Encounter for screening for diabetes mellitus; Z13.820 Encounter for screening for osteoporosis; Z13.89 Encounter for screening for other disorder; Z13.0 Encounter for screening for diseases of the blood and blood-forming organs and certain disorders involving the immune mechanism; Z13.21 Encounter for screening for nutritional disorder; Z13.220 Encounter for screening for lipoid disorders; Z13.228 Encounter for screening for other metabolic disorders; E55.9 Vitamin D deficiency, unspecified

== ENCOUNTER → 2022-11-22 | Outpatient (CLI) | payer OTHER, MEDICARE | END | disposition home or self-care (01) | LOC: CT 00:53 | PROVIDERS: ATTEND Internal Medicine | DX: H54.7 Unspecified visual loss (principal); I65.23 Occlusion and stenosis of bilateral carotid arteries; J43.9 Emphysema, unspecified; J32.0 Chronic maxillary sinusitis; J32.2 Chronic ethmoidal sinusitis ==

== ENCOUNTER → 2023-10-09 | Outpatient (CLI) | payer OTHER, MEDICARE | END | disposition home or self-care (01) | LOC: CARD 00:59 | PROVIDERS: ATTEND Internal Medicine | DX: I34.0 Nonrheumatic mitral (valve) insufficiency (principal); I10 Essential (primary) hypertension; I25.5 Ischemic cardiomyopathy; Z95.818 Presence of other cardiac implants and grafts ==

== ENCOUNTER → 2023-10-16 | Outpatient (CLI) | payer OTHER, MEDICARE ==
[2023-10-16 07:18] LABS: BASO % 0.9 % (0.0-1.0); EOS # 0.2 10*3/uL (0.0-0.4); EOS % 3.6 % (1.0-4.0); HEMATOCRIT 44.5 % (37.0-47.0); LYMPH % 23.3 % (27.0-41.0); MEAN CELL VOLUME 98.7 fl (81.0-99.0); MEAN CORPUSCULAR HGB 30.8 pg (27.0-31.0); MEAN CORPUSCULAR HGB CONC 31.2 g/dl (33.0-37.0); MEAN PLATELET VOLUME 9.5 fl (9.6-12.3); MONO # 0.6 10*3/uL (0.1-1.0); MONO % 13.6 % (3.0-9.0); NEUT # 2.6 10*3/uL (2.3-7.9); NEUT % 58.4 % (47.0-73.0); PLATELET COUNT AUTOMATED 264 10*3/uL (130-400); RED BLOOD COUNT 4.51 10*6/uL (4.10-5.10); RED CELL DISTRI WIDTH 14.6 % (0-14.5); WHITE BLOOD COUNT 4.5 10*3/uL (4.8-10.8)
[2023-10-16 08:07] LABS: ALKALINE PHOSPHATASE 124 U/L (46-116); BUN 18 mg/dl (9-23); CHLORIDE 106 mmol/L (98-107); CHOLESTEROL 165 mg/dL (<200); FREE T4 1.48 ng/dl (0.89-1.76); LDL CHOLESTEROL 76 mg/dL (9-159); POTASSIUM 4.6 mmol/L (3.4-5.1); SGPT/ALT 10 U/L (5-49); TOTAL PROTEIN 7.9 gm/dL (6.0-8.0); TRIGLYCERIDES 163 mg/dl (<150)
== END | disposition home or self-care (01) ==
LOC: LAB 01:48
PROVIDERS: ATTEND Internal Medicine
DX: Z13.228 Encounter for screening for other metabolic disorders (principal); Z13.220 Encounter for screening for lipoid disorders; Z13.29 Encounter for screening for other suspected endocrine disorder; Z13.6 Encounter for screening for cardiovascular disorders; Z13.89 Encounter for screening for other disorder; Z13.9 Encounter for screening, unspecified; I25.10 Atherosclerotic heart disease of native coronary artery without angina pectoris; I10 Essential (primary) hypertension; E87.6 Hypokalemia; E55.9 Vitamin D deficiency, unspecified; F17.210 Nicotine dependence, cigarettes, uncomplicated; M47.816 Spondylosis without myelopathy or radiculopathy, lumbar region; I77.9 Disorder of arteries and arterioles, unspecified; G64 Other disorders of peripheral nervous system; I42.9 Cardiomyopathy, unspecified; I73.9 Peripheral vascular disease, unspecified; J44.9 Chronic obstructive pulmonary disease, unspecified

== ENCOUNTER → 2023-10-23 | Outpatient (CLI) | payer OTHER, MEDICARE | END | disposition home or self-care (01) | LOC: MAMMO 01:29 | PROVIDERS: ATTEND Internal Medicine | DX: Z12.31 Encounter for screening mammogram for malignant neoplasm of breast (principal); R92.30 Dense breasts, unspecified; N64.89 Other specified disorders of breast ==

== ENCOUNTER → 2024-01-28 | Outpatient (CLI) | payer OTHER, MEDICARE | END | disposition home or self-care (01) | LOC: RAD 14:48 | PROVIDERS: ATTEND Internal Medicine | DX: J44.9 Chronic obstructive pulmonary disease, unspecified (principal); K44.9 Diaphragmatic hernia without obstruction or gangrene; I10 Essential (primary) hypertension; T82.9XXA Unspecified complication of cardiac and vascular prosthetic device, implant and graft, initial encounter; X58.XXXA Exposure to other specified factors, initial encounter ==

== ENCOUNTER → 2025-02-24 | Outpatient (CLI) | payer OTHER, MEDICARE ==
[2025-02-24 07:36] LABS: BASO # 0.0 10*3/uL (0.0-0.1); BASO % 0.8 % (0.0-1.0); EOS # 0.2 10*3/uL (0.0-0.4); EOS % 3.0 % (1.0-4.0); MEAN CELL VOLUME 99.6 fl (81.0-99.0); MEAN CORPUSCULAR HGB 33.0 pg (27.0-31.0); MEAN PLATELET VOLUME 9.6 fl (9.6-12.3); MONO # 0.5 10*3/uL (0.1-1.0); MONO % 9.9 % (3.0-9.0); NEUT # 3.4 10*3/uL (2.3-7.9); NEUT % 63.9 % (47.0-73.0); NUCLEATED RED BLOOD CELL 0.0 % (0.0-0.0); NUCLEATED RED BLOOD CELL 0.0 10*3/uL (0.0-0.0); PLATELET COUNT AUTOMATED 272 10*3/uL (130-400); RED CELL DISTRI WIDTH 13.8 % (0-14.5)
[2025-02-24 08:00] LABS: BUN 13 mg/dl (9-23); FREE T4 1.59 ng/dl (0.89-1.76); LDL CHOLESTEROL 131 mg/dL (9-159); SGPT/ALT 7 U/L (5-49)
[2025-02-24 08:26] LABS: VITAMIN D, 25-HYDROXY 40.4 ng/mL (30-100)
== END | disposition home or self-care (01) ==
LOC: LAB 02:59
PROVIDERS: ATTEND Internal Medicine
DX: I10 Essential (primary) hypertension (principal); E55.9 Vitamin D deficiency, unspecified; R53.83 Other fatigue; E53.9 Vitamin B deficiency, unspecified